=== PATIENT | male | born 1945 | race Caucasian/White ===

== ENCOUNTER 2017-09-20 10:33 | Inpatient (IN) ==
[2017-09-20] MEDS ORDERED: Ipratropium/Albuterol Neb 3 ML IH ONE (10:39)
[2017-09-20] MEDS ORDERED: methylPREDNISolone 125 MG/2 ML VIAL IVP ONE (10:39)
--- NOTE | 2017-09-20 10:41 | Emergency Department Note ---
Disposition Clinical Impression: Acute exacerbation of chronic obstructive airways disease Disposition: Admitted As Inpatient Condition: Good Forms: ED Satisfaction Letter SOB HPI - General Chief Complaint: ED Shortness of Breath/Dyspnea Stated Complaint: shortness of breath Time Seen by Provider: 09/20/17 10:38 Source: patient, EMS Mode of arrival: EMS Limitations: no limitations Nursing Notes Reviewed: Yes Vital Signs Reviewed: Yes - History of Present Illness Pt Subjective Complaint: shortness of breath Onset (ago): Just HOME HEALTH AID Context: other (States increasing cough with mild production. He denies any associated chest pain, dizziness, heart racing, active pain, or abdominal pain. The patient was seen by EMS this morning and was given one breathing treatment. The patient did give himself one albuterol treatment at home. He is chronically on home oxygen at 3 L.) Severity: severe Consistency/Duration: gradually worsening Improves with: oxygen, bronchodilators Worsens with: movement Known history of: COPD Associated symptoms: Reports: sputum production. Denies: chest pain, pain with inspiration, fever, lower extremity pain, diaphoresis, nausea/vomiting, abdominal pain, sense of impending doom Treatment prior to arrival: oxygen, bronchodilator Cough present: Yes Cough Description: Involuntary Cough Frequency: Intermittent Sputum production: Yes Sputum Amount: Small - Related Data Home Medications Medication Instructions Recorded Confirmed Aspirin 81 mg PO DAILY 03/02/15 08/20/17 Budesonide/Formoterol 160/4.5 2 puff IH BIDR 03/02/15 08/20/17 [Symbicort] Levothyroxine [Synthroid] 150 mcg PO DAILY 03/02/15 08/20/17 Phenytoin ER [Dilantin ER] 100 mg PO TID 03/02/15 08/20/17 Umeclidinium [place] [Incruse 1 puff IH DAILY 05/25/17 08/20/17 Ellipta] Albuterol Neb [Proventil Neb] 2.5 mg IH TID 08/20/17 08/20/17 Albuterol Sulfate [Ventolin Hfa] 2 puff IH Q6H PRN 08/20/17 08/20/17 Olmesartan Medoxomil [Benicar] 20 mg PO DAILY 08/20/17 08/20/17 Previous Rx's Medication Instructions Recorded Montelukast [Singulair] 10 mg PO DAILY #30 tablet 06/22/15 Lisinopril [Zestril] 10 mg PO DAILY #30 tablet 07/31/17 Metoprolol XL (24 HR) Succ [Toprol 25 mg PO DAILY #30 tab.er.24h 07/31/17 Xl] Allergies Allergy/AdvReac Type Severity Reaction Status Date / Time No Known Allergies Allergy Verified 09/20/17 10:34 All systems ED: reviewed and negative except as stated. Past Medical History - Past Medical History Medical history: Reports: asthma, cancer, COPD, hyperlipidemia, hypertension, seizures, thyroid disease, syncope, other Surgical history: Reports: colectomy Psychiatric history: Reports: no psych history - Social History Smoking Status: Former smoker Smokeless Tobacco Status: No Alcohol use: Reports: none Drug use: Reports: none Physical Exam - General Limitations: no limitations General appearance: alert, in distress - Head Head exam: atraumatic, normocephalic, normal inspection - Eye Eye exam: Present: normal appearance, PERRL, EOMI - ENT ENT exam: normal exam, normal oropharynx, mucous membranes dry - Neck Neck exam: Present: normal inspection, full ROM, trachea midline - Chest Chest inspection: Present: normal inspection, symmetric chest wall rise - Respiratory Respiratory exam: Present: respiratory distress, prolonged expiratory phase. Absent: wheezes, stridor, accessory muscle use - Expanded Respiratory Exam Location: decreased breath sounds: Lower, Upper - Cardiovascular Cardiovascular exam: Present: tachycardia, normal heart sounds. Absent: JVD - Abdominal Exam Abdominal exam: Present: soft, Non-Tender, other (Ventral hernia). Absent: tenderness, distention, guarding, rebound, rigidity - Extremities Exam Extremities exam: Present: normal inspection, full ROM. Absent: tenderness, pedal edema - Neurological Exam Neurological exam: Present: alert, oriented X3 - Skin Skin exam: Present: warm, dry, intact, normal color Course Course Narrative: Stable ED course with improvement of his respiratory failure after breathing treatment. He was placed on NRB secondary to persistent low oxygen saturation Vital Signs Temperature 99.8 F H 09/20/17 10:35 Pulse Rate 109 09/20/17 10:35 Respiratory Rate 24 09/20/17 10:35 Blood Pressure 146/104 09/20/17 10:35 O2 Sat by Pulse Oximetry 90 09/20/17 10:35 Temperature 99.8 F H 09/20/17 10:35 Pulse Rate 107 09/20/17 10:40 Respiratory Rate 14 09/20/17 10:53 Blood Pressure 146/104 09/20/17 10:40 O2 Sat by Pulse Oximetry 92 09/20/17 10:53 Oxygen Delivery Oxygen Delivery Nasal Cannula Shortness of Breath/Dyspnea - MDM Narrative Medical decision making narrative: Stable vitals. Respiratory status improved after treatment. Admit the patient for further treatment and pulmonary toileting. Discussed with admitting hospitalist. - Differential Diagnosis Likely: acute exacerbation of chronic obstructive airways disease - Lab Data Result diagrams: 09/20/17 10:53 09/20/17 10:53 Lab Results 09/20/17 09/20/17 09/20/17 Range/Units 10:53 10:53 10:53 WBC 6.9 (4.3-11.1) K/mcL RBC 4.12 L (4.19-5.50) M/mcL Hgb 13.1 (12.9-16.9) g/dL Hct 40.0 (37.5-50.1) % MCV 97.1 (83.0-100.0) fL MCH 31.8 (28.0-33.3) pg MCHC 32.8 (31.6-35.5) g/dL RDW 13.3 (11.5-14.5) % Plt Count 194 (140-400) K/mcL MPV 10.9 (9.4-12.4) fL Immature Gran % 0.1 (0-4) % Seg Neutrophils % 81.1 % Lymphocytes % 8.0 % Monocytes % 7.0 % Eosinophils % 3.2 % Basophils % 0.6 % Neutrophils # 5.6 (1.6-8.9) K/mcL Lymphocytes # 0.6 (0.6-4.6) K/mcL Monocytes # 0.5 (0.0-1.3) K/mcL Eosinophils # 0.2 (0.0-0.6) K/mcL Basophils # 0.0 (0.0-0.2) K/mcL Sodium 136 (136-145) mEq/L Potassium 4.8 (3.5-5.1) mEq/L Chloride 102 (98-107) mEq/L Carbon Dioxide 27 (23-29) mEq/L BUN 11 (8-23) mg/dL Creatinine 0.82 (0.70-1.30) mg/dL Est GFR ( Amer) > 60 (> 60) Est GFR (Non-Af Amer) > 60 (> 60) BUN/Creatinine Ratio 13 (6-26) Glucose 123 H (70-105) mg/dL Calculated Osmolality 283 (280-300) Calcium 8.8 (8.6-10.3) mg/dL Troponin I 0.03 (< 0.04) ng/mL B-Natriuretic Peptide 35 (Less than 100) pg/mL Critical Care Time Critical Care Time: Yes Total Critical Care Time: 60 Attestation: Critical care performed: Time is exclusive of separately billable procedures. Time includes: direct patient care, patient reassessment, coordination of patient care, interpretation of data (laboratory data, radiology data, and respiratory data), review of patient's medical records, medical consultation and documentation of patient care. Procedures included in critical care time: Procedures excluded from critical care time:
[2017-09-20 11:05] LABS: Basophils % 0.6 %; Eosinophils # 0.2 K/mcL (0.0-0.6); Eosinophils % 3.2 %; Hemoglobin 13.1 g/dL (12.9-16.9); Immature Granulocytes % 0.1 % (0-4); Lymphocytes # 0.6 K/mcL (0.6-4.6); Mean Corpuscular HGB Conc 32.8 g/dL (31.6-35.5); Mean Corpuscular Hemoglobin 31.8 pg (28.0-33.3); Mean Corpuscular Volume 97.1 fL (83.0-100.0); Mean Platelet Volume 10.9 fL (9.4-12.4); Monocytes # 0.5 K/mcL (0.0-1.3); Neutrophils # 5.6 K/mcL (1.6-8.9); Platelet Count 194 K/mcL (140-400); Red Blood Count 4.12 M/mcL (4.19-5.50); Red Cell Distribution Width 13.3 % (11.5-14.5); Segmented Neutrophils % 81.1 %
[2017-09-20 11:28] LABS: Troponin I 0.03 ng/mL (< 0.04)
[2017-09-20 11:30] LABS: BUN/Creatinine Ratio 13 (6-26); Blood Urea Nitrogen 11 mg/dL (8-23); Calcium 8.8 mg/dL (8.6-10.3); Carbon Dioxide 27 mEq/L (23-29); Chloride 102 mEq/L (98-107); Glucose 123 mg/dL (70-105); Osmolality,Calculated 283 (280-300); Potassium 4.8 mEq/L (3.5-5.1); Sodium 136 mEq/L (136-145); eGFR For African Americans > 60 (> 60); eGFR For Non-African Americans > 60 (> 60)
[2017-09-20] MEDS ORDERED: Acetaminophen 325 MG TABLET PO PRN (12:55)
[2017-09-20] MEDS ORDERED: Naloxone 0.4 MG/ML INJ IVP PRN (12:55)
[2017-09-20] MEDS ORDERED: *HR* HYDROcodone/Acet 5/325 mg TABLET PO PRN (12:55)
[2017-09-20 14:05] LABS: Phenytoin (Dilantin) 2.8 mcg/mL (10.0-20.0)
--- NOTE | 2017-09-20 15:37 | Internal Med History&Physical ---
Date of Encounter: 09/20/17 Time of Encounter: 15:15 Assessment and Plan (1) COPD exacerbation Current visit: No Status: Acute He has been given Solu-Medrol in emergency room. I will give him Rocephin and Zithromax since he has left shift on WBC differential. We will reassess in a.m. (2) Seizures Current visit: No Status: Chronic Continue Dilantin Internal Medicine - H&P: HPI Chief complaint: Dyspnea Admitted From: Emergency Dept Plans for Post Hospital Care: Home History of present illness: Mr. Vail is a 72 year old male who came to emergency room stating he had dyspnea and lightheadedness while ambulating to the bathroom. His dyspnea also was more severe than usual. He has had minimally productive cough. There has been no pain associated. He denies fevers chills vomiting or diarrhea. He was evaluated in emergency room and felt to have exacerbation of COPD and was admitted to [facility] floor for ongoing care needs. He was hospitalized July 2017 at [facility] with a diagnosis of exacerbation of COPD. His respiratory history is significant for having smoked from age [age] up to 2 packs per day. He wears oxygen 24/7. He reports orthostatic symptoms have been present on arising from a seated position for several weeks to months but the episode today was much more severe. Past Med Surg Social Fam HX - Past Medical History Medical history: asthma, cancer, COPD, hyperlipidemia, hypertension, seizures, thyroid disease, syncope, other Psychiatric history: no psych history - Past Surgical History Surgical History: colectomy - Social History Smoking Status: Former smoker Smokeless Tobacco Status: No Alcohol use: none Drug use: none - Family History Mother Hx Family Respiratory Disorders: Yes (TB) Father Hx Family Cancer: Yes Internal Medicine - H&P: Meds Aspirin 81 mg PO DAILY 03/02/15 [History] Budesonide/Formoterol 160/4.5 [Symbicort] 2 puff IH BIDR 03/02/15 [History] Levothyroxine [Synthroid] 150 mcg PO DAILY 03/02/15 [History] Phenytoin ER [Dilantin ER] 100 mg PO TID 03/02/15 [History] Montelukast [Singulair] 10 mg PO DAILY #30 tablet 06/22/15 [Rx] Umeclidinium [place] [Incruse Ellipta] 1 puff IH DAILY 05/25/17 [History] Lisinopril [Zestril] 10 mg PO DAILY #30 tablet 07/31/17 [Rx] Metoprolol XL (24 HR) Succ [Toprol Xl] 25 mg PO DAILY #30 tab.er.24h 07/31/17 [ Rx] Albuterol Sulfate [Ventolin Hfa] 2 puff IH Q6H PRN 08/20/17 [History] Olmesartan Medoxomil [Benicar] 20 mg PO DAILY 08/20/17 [History] 3 Allergy/AdvReac Type Severity Reaction Status Date / Time No Known Allergies Allergy Verified 09/20/17 10:34 All Systems PM: A 10-system review of systems was performed and is negative for pertinent findings except as documented above in the HPI. Review of systems: Review of systems from his July 2017 [facility] hospitalization were reviewed and revised as below. Gen.: His weight has increased from 91.99 kg on 07/12/2015 to 102.965 kg on admission now Cardiovascular: He has no known hypertension heart failure angina DVT pulmonary embolus or ND. He had a heart catheter January 2014 which showed 30% lesion in the mid LAD and normal LVEF at 65%. Respiratory: As per history of present illness GI: He had sigmoidectomy with primary anastomosis 2013 for colon cancer. He developed a ventral abdominal hernia postoperatively and is now using an elastic abdominal binder. He is presumed cancer free. He had repeat colonoscopy 05/25/2017 at [facility] which did not show significant pathology. He denies other disorders of his liver gallbladder or exocrine pancreas. : No history of hematuria dysuria or kidney stones. He has a liver lesion approximately 3.8 cm maximum diameter seen on CT scan that has been stable and felt to be benign. Neurologic: No history of large distribution strokes. He claims he had seizures from childhood but has not had recurrent episode for several years while using Dilantin. Endocrine: He has hypothyroidism and history of hyperlipidemia but no known diabetes Hematology/oncology: He had colon cancer as per above. He has had no other malignancies or anemia. Psychiatric: He had no anxiety depression or other mental health issues Musk skeletal: He has no known gout arthritis or osteoporosis. - Constitutional Vitals: Temp Pulse Resp BP Pulse Ox 99.8 F H 109 20 104/76 89 09/20/17 10:35 09/20/17 12:43 09/20/17 12:43 09/20/17 12:43 09/20/17 13:49 Exam: Gen.: He is a well-developed well-nourished male sitting on the side of bed who appears in minimal distress at present time HEENT: Head is atraumatic and normocephalic. Eyes: EOMI. There is no scleral icterus. Mouth: Mucosa is moist. Neck: Supple and nontender. There is no thyromegaly or adenopathy noted. Heart: Regular without murmurs gallops or ectopics Lungs: He has diminished breath sounds diffusely. No wheezes or crackles are heard. Abdomen: Soft and nontender. He is wearing abdominal elastic binder which I did not remove. Exam is limited because he is in the seated position. Extremities: There is no cyanosis edema or clubbing noted. He has chronic flexion at the left fourth finger DIP joint. He has surgically deformed left great toe. Neurologic: Mental status: He is very talkative and a good historian. Cranial nerves: Smile is symmetric. Forehead wrinkles bilaterally. Tongue protrudes midline. EOMI. Motor: There is no pronator drift. Cerebellar: Finger to nose is intact bilaterally. Skin: Warm and dry Internal Med - H&P Results - Labs CBC & Chem 7: 09/20/17 10:53 09/20/17 10:53
[2017-09-20] MEDS ORDERED: Azithromycin 250 MG in D5% in Water 250 ML IVPB SCH (16:00)
[2017-09-20] MEDS: Albuterol 2.5 MG/3 ML NEBULIZER IH PRN ×2 (16:08→21:06)
[2017-09-20] MEDS: predniSONE 10 MG TABLET PO SCH (16:12)
[2017-09-20] MEDS: cefTRIAXone 1,000 MG in Water for inj. (sterile) 20 ML 10 ML IVPB SCH (16:12)
--- NOTE | 2017-09-20 18:12 | Electrocardiograph Report ---
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
[2017-09-20] MEDS: Lactobacillus 1 EACH CAP.SPRINK PO SCH (20:09)
[2017-09-20] MEDS: Budesonide/Formoterol 160/4.5 MDI IH SCH (21:06)
[2017-09-21 05:57] LABS: Basophils % 0.4 %; Eosinophils # 0.1 K/mcL (0.0-0.6); Eosinophils % 1.5 %; Hematocrit 39.8 % (37.5-50.1); Hemoglobin 13.1 g/dL (12.9-16.9); Immature Granulocytes % 0.2 % (0-4); Lymphocytes # 0.5 K/mcL (0.6-4.6); Lymphocytes % 10.1 %; Mean Corpuscular HGB Conc 32.9 g/dL (31.6-35.5); Mean Corpuscular Hemoglobin 31.9 pg (28.0-33.3); Mean Corpuscular Volume 96.8 fL (83.0-100.0); Mean Platelet Volume 10.8 fL (9.4-12.4); Monocytes # 0.8 K/mcL (0.0-1.3); Monocytes % 17.2 %; Neutrophils # 3.3 K/mcL (1.6-8.9); Platelet Count 189 K/mcL (140-400); Red Blood Count 4.11 M/mcL (4.19-5.50); Red Cell Distribution Width 13.2 % (11.5-14.5); Segmented Neutrophils % 70.6 %
[2017-09-21] MEDS: predniSONE 10 MG TABLET PO SCH ×2 (08:51→16:53)
[2017-09-21] MEDS: Lactobacillus 1 EACH CAP.SPRINK PO SCH ×2 (08:51→19:52)
[2017-09-21] MEDS: Aspirin 81 MG TAB.CHEW PO SCH (08:51)
[2017-09-21] MEDS ORDERED: Metoprolol XL (24 HR) Succ 25 MG TAB.ER.24H PO SCH (09:00)
[2017-09-21] MEDS: Albuterol 2.5 MG/3 ML NEBULIZER IH PRN ×3 (11:07→21:10)
--- NOTE | 2017-09-21 11:08 | Internal Med Progress Note ---
Date of Encounter: 09/21/17 Time of Encounter: 11:00 - Assessment and plan (1) COPD exacerbation Current Visit: No Status: Acute Assessment and plan: September 21. Continue antibiotics, lactobacillus, and pulmonary interventions. Anticipate discharge home tomorrow. (2) Seizures Current Visit: No Status: Chronic Assessment and plan: September 21. Continue Dilantin. - Subjective Interval history: September 21. He has no new complaints and feels better - Constitutional Vitals: Temp Pulse Resp BP Pulse Ox 99.0 F 88 18 126/76 96 09/21/17 06:49 09/21/17 06:49 09/21/17 06:49 09/21/17 06:49 09/21/17 06:49 Exam: He is resting comfortably in bed and appears in no acute distress. His lungs are clear. Saturation is 93-95% on 15 L Venturi mask. Heart rate approximately 80/m. I reviewed his medications and lab results. Internal Medicine: Result - Labs CBC & Chem 7: 09/21/17 05:51 09/20/17 10:53 Labs: Short CBC 09/21/17 Range/Units 05:51 WBC 4.7 (4.3-11.1) K/mcL Hgb 13.1 (12.9-16.9) g/dL Hct 39.8 (37.5-50.1) % Plt Count 189 (140-400) K/mcL Neutrophils # 3.3 (1.6-8.9) K/mcL Consult Discharge Plan - Plan Referrals: Dex Hutton DO [Primary Care Provider] - 1 week
[2017-09-21] MEDS: Budesonide/Formoterol 160/4.5 MDI IH SCH ×2 (11:09→21:10)
[2017-09-21] MEDS ORDERED: Azithromycin 250 MG in D5% in Water 250 ML IVPB SCH (16:00)
[2017-09-21] MEDS: cefTRIAXone 1,000 MG in Water for inj. (sterile) 20 ML 10 ML IVPB SCH (16:53)
[2017-09-22 06:27] VITALS: BP 105/69
--- NOTE | 2017-09-22 08:28 | Discharge Summary ---
Date of Encounter: 09/22/17 Time of Encounter: 08:18 - Discharge Diagnosis (1) COPD exacerbation Priority: Primary Status: Acute (2) Seizures Priority: Secondary Status: Chronic Hospital course: Mr. Vail is a 72 year old male who came to emergency room stating he had dyspnea and lightheadedness while ambulating to the bathroom. His dyspnea also was more severe than usual. He has had minimally productive cough. There has been no pain associated. He denies fevers chills vomiting or diarrhea. He was evaluated in emergency room and felt to have exacerbation of COPD and was admitted to [facility] for ongoing care needs. Initial orders were written by the emergency room physician. I saw him on September 20 and performed a history and physical. He was started on Rocephin and Zithromax with probiotics and steroids. He had gradually improvement in his dyspnea and felt back to his baseline by August 26 and stable for discharge home. He will continue with antibiotic and probiotic for 2 additional days after discharge. Orthostatic vital signs showed decrease in blood pressure from 105/69 lying to 87/66 standing. He will discontinue lisinopril and Benicar but continue Toprol at discharge. His PCP can follow up on this. He will follow with Dr. Hutton within 1 week. - Time Spent with Patient Total time spent providing and/or coordinating discharge services: - Discharge Medications Prescriptions: Cefuroxime PO [Ceftin] 500 mg PO Q12HR #4 tablet Azithromycin [Zithromax] 250 mg PO DAILY #2 tablet Lactobacillus [Culturelle] 1 each PO BID #4 cap.sprink predniSONE [PredniSONE] 10 mg PO BIDWM #4 tablet Home Medications: Aspirin 81 mg PO DAILY 03/02/15 [History] Budesonide/Formoterol 160/4.5 [Symbicort] 2 puff IH BIDR 03/02/15 [History] Levothyroxine [Synthroid] 150 mcg PO DAILY 03/02/15 [History] Phenytoin ER [Dilantin ER] 100 mg PO TID 03/02/15 [History] Montelukast [Singulair] 10 mg PO DAILY #30 tablet 06/22/15 [Rx] Umeclidinium [place] [Incruse Ellipta] 1 puff IH DAILY 05/25/17 [History] Metoprolol XL (24 HR) Succ [Toprol Xl] 25 mg PO DAILY #30 tab.er.24h 07/31/17 [ Rx] Albuterol Sulfate [Ventolin Hfa] 2 puff IH Q6H PRN 08/20/17 [History] Azithromycin [Zithromax] 250 mg PO DAILY #2 tablet 09/22/17 [Rx] Cefuroxime PO [Ceftin] 500 mg PO Q12HR #4 tablet 09/22/17 [Rx] Lactobacillus [Culturelle] 1 each PO BID #4 cap.sprink 09/22/17 [Rx] predniSONE [PredniSONE] 10 mg PO BIDWM #4 tablet 09/22/17 [Rx] Allergies/Adverse Reactions: 3 Allergy/AdvReac Type Severity Reaction Status Date / Time No Known Allergies Allergy Verified 09/20/17 10:34 Date of admission: 09/21/17 21:40 Primary care physician: Dex Hutton DO - Constitutional Vitals: Temp Pulse Resp BP Pulse Ox 97.6 F 68 20 105/69 95 09/22/17 06:24 09/22/17 06:27 09/22/17 06:24 09/22/17 06:27 09/22/17 06:24 - Patient Status Disposition: Home, Self-Care Condition: Good - Discharge Instructions Follow Up With: Dex Hutton DO [Primary Care Provider] - 1 week - Diet and Activity Activity: resume usual activities as tolerated, wear oxygen at all times Diet: advance to your usual diet
--- NOTE | 2017-09-22 08:33 | Physician Discharge Referral ---
Home Health/Hosp Referral Info Transfer to: Home Health Attending Provider: Jackson Provider in Charge Post Discharge: PCP (Anni) - Diagnosis (1) COPD exacerbation Priority: Primary Status: Acute (2) Seizures Priority: Secondary Status: Chronic - Respiratory Orders Oxygen / L per min (3-5 L/m nasal cannula 16/01 to keep sat greater than 90%) Smoking Cessation: Smoking cessation has been advised. For more information, call the [place] Tobacco Quit Line at 1-303-PYQQ-NOW. - Diet/Nutrition Diet/Nutrition Orders: Regular - Activity Activity Orders: Ambulate - Services Needed Following services are medically necessary services: Nursing, Home Health Aide, Physical Therapy, Occupational Therapy - Transfer Medications Prescriptions: Cefuroxime PO [Ceftin] 500 mg PO Q12HR #4 tablet Azithromycin [Zithromax] 250 mg PO DAILY #2 tablet Lactobacillus [Culturelle] 1 each PO BID #4 cap.sprink predniSONE [PredniSONE] 10 mg PO BIDWM #4 tablet Home Medications: Aspirin 81 mg PO DAILY 03/02/15 [History] Budesonide/Formoterol 160/4.5 [Symbicort] 2 puff IH BIDR 03/02/15 [History] Levothyroxine [Synthroid] 150 mcg PO DAILY 03/02/15 [History] Phenytoin ER [Dilantin ER] 100 mg PO TID 03/02/15 [History] Montelukast [Singulair] 10 mg PO DAILY #30 tablet 06/22/15 [Rx] Umeclidinium [place] [Incruse Ellipta] 1 puff IH DAILY 05/25/17 [History] Metoprolol XL (24 HR) Succ [Toprol Xl] 25 mg PO DAILY #30 tab.er.24h 07/31/17 [ Rx] Albuterol Sulfate [Ventolin Hfa] 2 puff IH Q6H PRN 08/20/17 [History] Azithromycin [Zithromax] 250 mg PO DAILY #2 tablet 09/22/17 [Rx] Cefuroxime PO [Ceftin] 500 mg PO Q12HR #4 tablet 09/22/17 [Rx] Lactobacillus [Culturelle] 1 each PO BID #4 cap.sprink 09/22/17 [Rx] predniSONE [PredniSONE] 10 mg PO BIDWM #4 tablet 09/22/17 [Rx] Allergies/Adverse Reactions: 3 Allergy/AdvReac Type Severity Reaction Status Date / Time No Known Allergies Allergy Verified 09/20/17 10:34 Certification: Further, I certify that my clinical findings support that this patient is homebound (i.e. absences from home require considerable and taxing effort and are for medical reasons or yarsani services or infrequently or short duration when for other reasons) because: Homebound Reason: Leaving home requires considerable and taxing effort due to condition (Severe COPD) Attestation: My signature below is to certify that this patient is under my care and that I, or nurse practitioner, or a physician's executive assistant to president working with me, has a face-to -face encounter with this patient.
[2017-09-22] MEDS: Budesonide/Formoterol 160/4.5 MDI IH SCH (09:58)
[2017-09-22] MEDS: Albuterol 2.5 MG/3 ML NEBULIZER IH PRN (10:01)
[2017-09-22] MEDS: predniSONE 10 MG TABLET PO SCH (11:46)
[2017-09-22] MEDS: Lactobacillus 1 EACH CAP.SPRINK PO SCH (11:47)
[2017-09-22] MEDS: Aspirin 81 MG TAB.CHEW PO SCH (11:47)
== END 2017-09-22 12:20 | disposition home health service (06) | DRG 192 ==
LOC: EMEROOPIK 10:33 → INPPIK 10:33
PROVIDERS: ADMIT Internal Medicine; ATTEND Internal Medicine

== ENCOUNTER 2017-09-25 06:23 | Observation (INO) ==
--- NOTE | 2017-09-25 06:48 | Emergency Department Note ---
Disposition Clinical Impression: Pneumonia, Hypoxemia Disposition: Admitted As Inpatient Condition: Good Referrals: Dex Hutton DO [Primary Care Provider] - Forms: ED Satisfaction Letter SOB HPI - General Chief Complaint: ED Shortness of Breath/Dyspnea Stated Complaint: Shortness of breath Time Seen by Provider: 09/25/17 06:30 Source: patient Mode of arrival: EMS Limitations: no limitations Nursing Notes Reviewed: Yes Vital Signs Reviewed: Yes - History of Present Illness Patient states that shortness of breath his blood pressure was high started about 5:00 this morning he called the squad and was transported here. He says "this always happens". He denies any chest pain fevers chills nausea vomiting rashes or other complaints. 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 Denies: fever Treatment prior to arrival: none - Related Data Home Medications Medication Instructions Recorded Confirmed Aspirin 81 mg PO DAILY 03/02/15 09/20/17 Budesonide/Formoterol 160/4.5 2 puff IH BIDR 03/02/15 09/20/17 [Symbicort] Levothyroxine [Synthroid] 150 mcg PO DAILY 03/02/15 09/20/17 Phenytoin ER [Dilantin ER] 100 mg PO TID 03/02/15 09/20/17 Umeclidinium [place] [Incruse 1 puff IH DAILY 05/25/17 09/20/17 Ellipta] Albuterol Sulfate [Ventolin Hfa] 2 puff IH Q6H PRN 08/20/17 09/20/17 Previous Rx's Medication Instructions Recorded Montelukast [Singulair] 10 mg PO DAILY #30 tablet 06/22/15 Metoprolol XL (24 HR) Succ [Toprol 25 mg PO DAILY #30 tab.er.24h 07/31/17 Xl] Azithromycin [Zithromax] 250 mg PO DAILY #2 tablet 09/22/17 Cefuroxime PO [Ceftin] 500 mg PO Q12HR #4 tablet 09/22/17 Lactobacillus [Culturelle] 1 each PO BID #4 cap.sprink 09/22/17 predniSONE [PredniSONE] 10 mg PO BIDWM #4 tablet 09/22/17 Allergies Allergy/AdvReac Type Severity Reaction Status Date / Time No Known Allergies Allergy Verified 09/20/17 10:34 All systems ED: reviewed and negative except as stated. Review of Systems: As Per HPI Constitutional: Denies: fever, chills, weakness, weight change Eyes: Denies: eye pain, eye discharge, vision change ENT ED: Denies: ear pain, throat pain, dental pain, hearing loss, epistaxis, congestion, dysphagia Cardiovascular: Denies: chest pain, palpitations, dyspnea on exertion, edema, syncope Respiratory: Reports: as per HPI, cough, other (SOB). Denies: sputum production Gastrointestinal: Denies: abdominal pain, nausea, vomiting, diarrhea, constipation, hematemesis, melena, hematochezia Genitourinary: Denies: urgency, dysuria, frequency, hematuria Musculoskeletal: Denies: back pain, neck pain, arthralgia, myalgia Integumentary: Denies: rash, abrasion, lesions Neurological: Denies: headache, weakness, numbness, paresthesias, confusion, abnormal gait, vertigo Psychiatric: Denies: anxiety, depression, suicidal thoughts, homicidal thoughts , auditory hallucinations, visual hallucinations Endocrine: Denies: fatigue Hematological/Lymphatic: Denies: easy bleeding, easy bruising Allergic/Immunologic: Denies: facial swelling, urticaria Past Medical History - Past Medical History Attestation: Yes The following information was validated with the patient. Source: patient Medical history: Reports: asthma, cancer, COPD, hyperlipidemia, hypertension, seizures, thyroid disease, syncope, other Surgical history: Reports: colectomy Psychiatric history: Reports: no psych history - Social History Smoking Status: Former smoker Smokeless Tobacco Status: No Alcohol use: Reports: none Drug use: Reports: none Physical Exam - General Limitations: no limitations General appearance: alert, in no apparent distress - Head Head exam: atraumatic, normocephalic, normal inspection - Eye Eye exam: Present: normal appearance - ENT ENT exam: normal exam, normal oropharynx, mucous membranes moist - Neck Neck exam: Present: normal inspection, full ROM, trachea midline - Chest Chest inspection: Present: normal inspection, symmetric chest wall rise - Respiratory Respiratory exam: Present: normal lung sounds bilaterally, other (generally diminished) - Cardiovascular Cardiovascular exam: Present: regular rate, normal rhythm, normal heart sounds - Abdominal Exam Abdominal exam: Present: soft, Non-Tender, normal bowel sounds - Extremities Exam Extremities exam: Present: normal inspection - Back Exam Back exam: Present: normal inspection - Neurological Exam Neurological exam: Present: alert, oriented X3 - Psychiatric Psychiatric exam: Present: normal affect, normal mood - Skin Skin exam: Present: warm, dry, intact Course Vital Signs Temperature 98.0 F 09/25/17 06:26 Pulse Rate 89 09/25/17 06:26 Respiratory Rate 25 09/25/17 06:26 Blood Pressure 145/100 09/25/17 06:26 O2 Sat by Pulse Oximetry 87 09/25/17 06:26 Temperature 98.0 F 09/25/17 06:26 Pulse Rate 89 09/25/17 06:26 Respiratory Rate 18 09/25/17 07:32 Blood Pressure 145/100 09/25/17 06:26 O2 Sat by Pulse Oximetry 91 09/25/17 07:32 Oxygen Delivery Oxygen Delivery Nasal Cannula Shortness of Breath/Dyspnea - MDM Narrative Medical decision making narrative: Discussed with Dr. Paz who accepts the admission - Lab Data Lab results reviewed: Yes I reviewed the patient's lab results. Result diagrams: 09/25/17 07:10 09/25/17 07:10 Lab Results 09/25/17 09/25/17 Range/Units 07:10 07:10 WBC 3.9 L (4.3-11.1) K/mcL RBC 4.33 (4.19-5.50) M/mcL Hgb 13.9 (12.9-16.9) g/dL Hct 40.9 (37.5-50.1) % MCV 94.5 (83.0-100.0) fL MCH 32.1 (28.0-33.3) pg MCHC 34.0 (31.6-35.5) g/dL RDW 13.1 (11.5-14.5) % Plt Count 203 (140-400) K/mcL MPV 10.8 (9.4-12.4) fL Immature Gran % 0.3 (0-4) % Seg Neutrophils % 62.0 % Lymphocytes % 24.0 % Monocytes % 11.9 % Eosinophils % 1.0 % Basophils % 0.8 % Neutrophils # 2.4 (1.6-8.9) K/mcL Lymphocytes # 0.9 (0.6-4.6) K/mcL Monocytes # 0.5 (0.0-1.3) K/mcL Eosinophils # 0.0 (0.0-0.6) K/mcL Basophils # 0.0 (0.0-0.2) K/mcL Sodium 136 (136-145) mEq/L Potassium 3.8 (3.5-5.1) mEq/L Chloride 103 (98-107) mEq/L Carbon Dioxide 25 (23-29) mEq/L BUN 15 (8-23) mg/dL Creatinine 0.84 (0.70-1.30) mg/dL Est GFR ( Amer) > 60 (> 60) Est GFR (Non-Af Amer) > 60 (> 60) BUN/Creatinine Ratio 18 (6-26) Glucose 93 (70-105) mg/dL Calculated Osmolality 283 (280-300) Calcium 8.9 (8.6-10.3) mg/dL Total Bilirubin 0.5 (0.3-1.0) mg/dL AST 26 (13-39) Units/L ALT 34 (7-52) Units/L Alkaline Phosphatase 121 H (34-104) Units/L Troponin I 0.03 (< 0.04) ng/mL Serum Total Protein 7.1 (6.4-8.9) g/dL Albumin 4.3 (3.5-5.7) g/dL Globulin 2.8 (2.4-3.5) g/dL Albumin/Globulin Ratio 1.5 (1.1-2.2) - Radiology Data Radiology results reviewed: Yes I reviewed the patient's radiology results. - EKG Data EKG attestation: Yes I reviewed and interpreted this EKG. EKG results narrative: EKG sinus shows sinus rhythm with first-degree AV block left axis deviation. Rate is 86 bpm. Full 247 ms QRS duration 89 ms QT interval 356 QTC 400 ms respectively R axis of -33 degrees
[2017-09-25] MEDS ORDERED: methylPREDNISolone 125 MG/2 ML VIAL IVP ONE (06:49)
[2017-09-25] MEDS ORDERED: Ipratropium/Albuterol Neb 3 ML IH ONE (06:49)
[2017-09-25] MEDS ORDERED: 0.9 % Sodium Chloride 1,000 ML IVC SCH ×2 (07:00→12:38)
[2017-09-25 07:25] LABS: Basophils % 0.8 %; Hematocrit 40.9 % (37.5-50.1); Hemoglobin 13.9 g/dL (12.9-16.9); Immature Granulocytes % 0.3 % (0-4); Lymphocytes # 0.9 K/mcL (0.6-4.6); Mean Corpuscular Hemoglobin 32.1 pg (28.0-33.3); Mean Corpuscular Volume 94.5 fL (83.0-100.0); Mean Platelet Volume 10.8 fL (9.4-12.4); Monocytes # 0.5 K/mcL (0.0-1.3); Monocytes % 11.9 %; Neutrophils # 2.4 K/mcL (1.6-8.9); Platelet Count 203 K/mcL (140-400); Red Blood Count 4.33 M/mcL (4.19-5.50); Red Cell Distribution Width 13.1 % (11.5-14.5)
[2017-09-25 07:41] LABS: Alanine Aminotransferase 34 Units/L (7-52); Albumin 4.3 g/dL (3.5-5.7); Albumin/Globulin Ratio 1.5 (1.1-2.2); Alkaline Phosphatase 121 Units/L (34-104); Aspartate Amino Transferase 26 Units/L (13-39); BUN/Creatinine Ratio 18 (6-26); Bilirubin,Total 0.5 mg/dL (0.3-1.0); Blood Urea Nitrogen 15 mg/dL (8-23); Calcium 8.9 mg/dL (8.6-10.3); Carbon Dioxide 25 mEq/L (23-29); Chloride 103 mEq/L (98-107); Globulin 2.8 g/dL (2.4-3.5); Glucose 93 mg/dL (70-105); Osmolality,Calculated 283 (280-300); Potassium 3.8 mEq/L (3.5-5.1); Sodium 136 mEq/L (136-145); Total Protein 7.1 g/dL (6.4-8.9); eGFR For African Americans > 60 (> 60); eGFR For Non-African Americans > 60 (> 60)
[2017-09-25 07:44] LABS: Troponin I 0.03 ng/mL (< 0.04)
[2017-09-25] MEDS ORDERED: UMECLIDINIUM BROMIDE IH SCH (12:38)
[2017-09-25] MEDS ORDERED: Naloxone 0.4 MG/ML INJ IVP PRN (12:38)
--- NOTE | 2017-09-25 12:47 | Electrocardiograph Report ---
[address] [address] Test Date: 2017-09-25 Pat Name: Nirmal Vail Department: [id number] Room: 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
[2017-09-25] MEDS: Budesonide/Formoterol 160/4.5 MDI IH SCH ×2 (13:04→22:24)
[2017-09-25] MEDS: Aspirin 81 MG TAB.CHEW PO SCH (14:33)
[2017-09-25] MEDS: Metoprolol XL (24 HR) Succ 25 MG TAB.ER.24H PO SCH (14:34)
[2017-09-25] MEDS: predniSONE 10 MG TABLET PO SCH ×2 (14:34→14:36)
--- NOTE | 2017-09-25 15:23 | Internal Med History&Physical ---
Date of Encounter: 09/25/17 Time of Encounter: 15:00 Assessment and Plan (1) Hypoxemia Current visit: Yes Status: Acute Suspect due to severe underlying COPD with possible superimposed pneumonia. Will order chest CT to further evaluate. Internal Medicine - H&P: HPI Chief complaint: Dyspnea Admitted From: Emergency Dept Plans for Post Hospital Care: Home History of present illness: Mr. Vail is a 72 year old male who came to emergency room stating he awakened approximately 5 AM today with dyspnea. He noted his oxygen concentrator did not appear to be working properly. He is unsure how long the machine may have been malfunctioning. He came to emergency room because of dyspnea and was evaluated and felt to have exacerbation of COPD. He was admitted to [facility] floor for ongoing care needs. He was discharged from [facility] September 22 following a September 20 admission for dyspnea. He was treated with antibiotics during hospital stay and given Ceftin and Zithromax at discharge for 2 additional days. His respiratory history is significant for having smoked from age [age] up to 2 packs per day. He wears oxygen 16/01. Past Med Surg Social Fam HX - Past Medical History Medical history: asthma, cancer, COPD, hyperlipidemia, hypertension, seizures, thyroid disease, syncope, other Psychiatric history: no psych history - Past Surgical History Surgical History: colectomy - Social History Smoking Status: Former smoker Smokeless Tobacco Status: No Alcohol use: none Drug use: none - Family History Mother Hx Family Respiratory Disorders: Yes (TB) Father Hx Family Cancer: Yes Internal Medicine - H&P: Meds Aspirin 81 mg PO DAILY 03/02/15 [History] Budesonide/Formoterol 160/4.5 [Symbicort] 2 puff IH BIDR 03/02/15 [History] Levothyroxine [Synthroid] 150 mcg PO DAILY 03/02/15 [History] Phenytoin ER [Dilantin ER] 100 mg PO TID 03/02/15 [History] Montelukast [Singulair] 10 mg PO DAILY #30 tablet 06/22/15 [Rx] Umeclidinium [place] [Incruse Ellipta] 1 puff IH DAILY 05/25/17 [History] Metoprolol XL (24 HR) Succ [Toprol Xl] 25 mg PO DAILY #30 tab.er.24h 07/31/17 [ Rx] Albuterol Sulfate [Ventolin Hfa] 2 puff IH Q6H PRN 08/20/17 [History] Azithromycin [Zithromax] 250 mg PO DAILY #2 tablet 09/22/17 [Rx] Cefuroxime PO [Ceftin] 500 mg PO Q12HR #4 tablet 09/22/17 [Rx] Lactobacillus [Culturelle] 1 each PO BID #4 cap.sprink 09/22/17 [Rx] predniSONE [PredniSONE] 10 mg PO BIDWM #4 tablet 09/22/17 [Rx] 3 Allergy/AdvReac Type Severity Reaction Status Date / Time No Known Allergies Allergy Verified 09/20/17 10:34 All Systems PM: A 10-system review of systems was performed and is negative for pertinent findings except as documented above in the HPI. Review of systems: Review of systems from his August 2017 [facility] hospitalization last week were reviewed and revised as below. Gen.: His weight has increased from 91.99 kg on 07/12/2015 to 92.986 kg now Cardiovascular: He has no known hypertension heart failure angina DVT pulmonary embolus or [place]. He had a heart catheter January 2014 which showed 30% lesion in the mid LAD and normal LVEF at 65%. Respiratory: As per history of present illness GI: He had sigmoidectomy with primary anastomosis 07/2013 for colon cancer. He developed a ventral abdominal hernia postoperatively and is now using an elastic abdominal binder. He is presumed cancer free. He had repeat colonoscopy 05/25/2017 at [facility] which did not show significant pathology. He denies other disorders of his liver gallbladder or exocrine pancreas. : No history of hematuria dysuria or kidney stones. He has a liver lesion approximately 3.8 cm maximum diameter seen on CT scan that has been stable and felt to be benign. Neurologic: No history of large distribution strokes. He claims he had seizures from childhood but has not had recurrent episode for several years while using Dilantin. Endocrine: He has hypothyroidism and history of hyperlipidemia but no known diabetes Hematology/oncology: He had colon cancer as per above. He has had no other malignancies or anemia. Psychiatric: He had no anxiety depression or other mental health issues Musk skeletal: He has no known gout arthritis or osteoporosis. - Constitutional Vitals: Temp Pulse Resp BP Pulse Ox 99 F 99 19 166/87 90 09/25/17 13:13 09/25/17 13:13 04/02/18 13:13 09/25/17 13:13 09/25/17 13:13 Exam: Gen.: He is a well-developed well-nourished male lying in bed who appears in no acute distress at present time HEENT: Head is atraumatic and normocephalic. Eyes: EOMI. There is no scleral icterus. Mouth: Mucosa is moist. Neck: Supple and nontender. There is no thyromegaly or adenopathy noted. Heart: Regular without murmurs gallops or ectopics Lungs: No wheezes or crackles are heard. He has diminished breath sounds diffusely. Abdomen: He has a large ventral hernia and is wearing an abdominal binder which I did not remove. The abdomen is nontender to palpation. Extremities: There is no cyanosis edema or clubbing noted. Dorsalis pedis and posttibial pulses are trace to 1+ palpable bilaterally. Neurologic: Mental status: He is very talkative and able to answer most questions appropriately. Cranial nerves: Smile is symmetric. Forehead wrinkles bilaterally. Tongue protrudes midline. EOMI. Motor: There is no pronator drift. Cerebellar: Finger to nose is intact bilaterally. Skin: Warm and dry Internal Med - H&P Results - Labs CBC & Chem 7: 09/25/17 07:10 09/25/17 07:10
[2017-09-25] MEDS ORDERED: Albuterol 2.5 MG/3 ML NEBULIZER IH PRN (16:51)
[2017-09-26 08:04] VITALS: BP 126/83
[2017-09-26] MEDS: predniSONE 10 MG TABLET PO SCH (08:31)
[2017-09-26] MEDS: Metoprolol XL (24 HR) Succ 25 MG TAB.ER.24H PO SCH (08:31)
[2017-09-26] MEDS: Aspirin 81 MG TAB.CHEW PO SCH (08:31)
[2017-09-26] MEDS: Budesonide/Formoterol 160/4.5 MDI IH SCH (10:44)
--- NOTE | 2017-09-26 11:21 | Discharge Summary ---
Date of Encounter: 09/26/17 Time of Encounter: 11:10 - Discharge Diagnosis (1) Hypoxemia Priority: Primary Status: Acute Hospital course: Mr. Vail is a 72 year old male who came to emergency room stating he awakened approximately 5 AM today with dyspnea. He noted his oxygen concentrator did not appear to be working properly. He is unsure how long the machine may have been malfunctioning. He came to emergency room because of dyspnea and was evaluated and felt to have exacerbation of COPD. He was admitted to [facility] for ongoing care needs. Initial orders were written by the emergency room physician. I saw him on September 25 and performed a history and physical. Chest CT was done to further evaluate hypoxemia and follow-up on possible pneumonia seen on chest x-ray. The CT showed emphysema but no evidence of consolidation or nodules. His saturations remained 87-91% on oxygen by nasal cannula. I suspect this is his baseline. On September 26 I felt he was stable for discharge home. He will follow with his PCP Dr. Hutton within 1 week. - Time Spent with Patient Total time spent providing and/or coordinating discharge services: - Discharge Medications Home Medications: Aspirin 81 mg PO DAILY 03/02/15 [History] Budesonide/Formoterol 160/4.5 [Symbicort] 2 puff IH BIDR 03/02/15 [History] Levothyroxine [Synthroid] 150 mcg PO DAILY 03/02/15 [History] Phenytoin ER [Dilantin ER] 100 mg PO TID 03/02/15 [History] Montelukast [Singulair] 10 mg PO DAILY #30 tablet 06/22/15 [Rx] Umeclidinium [place] [Incruse Ellipta] 1 puff IH DAILY 05/25/17 [History] Metoprolol XL (24 HR) Succ [Toprol Xl] 25 mg PO DAILY #30 tab.er.24h 07/31/17 [ Rx] Albuterol Sulfate [Ventolin Hfa] 2 puff IH Q6H PRN 08/20/17 [History] Azithromycin [Zithromax] 250 mg PO DAILY #2 tablet 09/22/17 [Rx] Cefuroxime PO [Ceftin] 500 mg PO Q12HR #4 tablet 09/22/17 [Rx] Lactobacillus [Culturelle] 1 each PO BID #4 cap.sprink 09/22/17 [Rx] predniSONE [PredniSONE] 10 mg PO BIDWM #4 tablet 09/22/17 [Rx] Allergies/Adverse Reactions: 3 Allergy/AdvReac Type Severity Reaction Status Date / Time No Known Allergies Allergy Verified 09/20/17 10:34 Date of admission: 09/25/17 12:25 Primary care physician: Dex Hutton DO - Constitutional Vitals: Temp Pulse Resp BP Pulse Ox 98.4 F 92 86 126/83 92 09/26/17 10:37 09/26/17 10:37 09/26/17 10:37 09/26/17 06:45 09/26/17 10:37 - Patient Status Disposition: Home Health Service Condition: Good Overall status at discharge: patient is progressing back to baseline - Discharge Instructions Follow Up With: Dex Hutton DO [Primary Care Provider] - 1 week - Diet and Activity Activity: resume usual activities as tolerated, wear oxygen at all times Diet: advance to your usual diet
--- NOTE | 2017-09-26 11:25 | Physician Discharge Referral ---
Home Health/Hosp Referral Info Transfer to: Home Health Attending Provider: Jackson Provider in Charge Post Discharge: PCP (Anni) - Diagnosis (1) Hypoxemia Priority: Primary Status: Acute - Respiratory Orders Oxygen / L per min (2 L/m by nasal cannula 16/01) Smoking Cessation: Smoking cessation has been advised. For more information, call the [place] Tobacco Quit Line at 8-261-YTHU-NOW. - Diet/Nutrition Diet/Nutrition Orders: Regular - Activity Activity Orders: Walker - Services Needed Following services are medically necessary services: Nursing, Home Health Aide, Physical Therapy, Occupational Therapy - Transfer Medications Home Medications: Aspirin 81 mg PO DAILY 03/02/15 [History] Budesonide/Formoterol 160/4.5 [Symbicort] 2 puff IH BIDR 03/02/15 [History] Levothyroxine [Synthroid] 150 mcg PO DAILY 03/02/15 [History] Phenytoin ER [Dilantin ER] 100 mg PO TID 03/02/15 [History] Montelukast [Singulair] 10 mg PO DAILY #30 tablet 06/22/15 [Rx] Umeclidinium [place] [Incruse Ellipta] 1 puff IH DAILY 05/25/17 [History] Metoprolol XL (24 HR) Succ [Toprol Xl] 25 mg PO DAILY #30 tab.er.24h 07/31/17 [ Rx] Albuterol Sulfate [Ventolin Hfa] 2 puff IH Q6H PRN 08/20/17 [History] Azithromycin [Zithromax] 250 mg PO DAILY #2 tablet 09/22/17 [Rx] Cefuroxime PO [Ceftin] 500 mg PO Q12HR #4 tablet 09/22/17 [Rx] Lactobacillus [Culturelle] 1 each PO BID #4 cap.sprink 09/22/17 [Rx] predniSONE [PredniSONE] 10 mg PO BIDWM #4 tablet 09/22/17 [Rx] Allergies/Adverse Reactions: 3 Allergy/AdvReac Type Severity Reaction Status Date / Time No Known Allergies Allergy Verified 09/20/17 10:34 Certification: Further, I certify that my clinical findings support that this patient is homebound (i.e. absences from home require considerable and taxing effort and are for medical reasons or yazidism services or infrequently or short duration when for other reasons) because: Homebound Reason: Leaving home requires considerable and taxing effort due to condition (Severe COPD with hypoxemia) Attestation: My signature below is to certify that this patient is under my care and that I, or nurse practitioner, or a physician's assistant golf professional working with me, has a face-to -face encounter with this patient.
== END 2017-09-26 12:13 | disposition home health service (06) ==
LOC: INPPIK 06:23 → EMEROOPIK 06:23 → INPPIK 12:50
PROVIDERS: ADMIT Internal Medicine; ATTEND Internal Medicine

== ENCOUNTER 2017-11-07 05:53 | Observation (INO) ==
--- NOTE | 2017-11-07 06:08 | Emergency Department Note ---
Disposition Clinical Impression: Acute exacerbation of chronic obstructive airways disease Disposition: Admitted As Inpatient Condition: Fair Referrals: Dex Hutton DO [Primary Care Provider] - Forms: ED Satisfaction Letter SOB HPI - General Chief Complaint: ED Shortness of Breath/Dyspnea Stated Complaint: SHORTNESS OF BREATH Source: patient, EMS Mode of arrival: EMS Limitations: no limitations Nursing Notes Reviewed: Yes Vital Signs Reviewed: Yes - History of Present Illness Presents to the ED via EMS with complaint of shortness of breath. States he started feeling short of breath around midnight. He called EMS who came and gave him a nebulizer treatment. He was feeling better and they did not transport at that time. Started having trouble breathing again around 5 AM, took 2 puffs of his albuterol and did not feel better so he called the squad back and now presents to the ED. He has a long-standing history of COPD and asthma and wears 3 L of oxygen at home. He reports compliance with his medications. He states he occasionally has a cough and sometimes brings up white or yellow phlegm. He is also had some rhinorrhea and sneezing over the past few days and states he had a brief nosebleed earlier this morning that resolved on its own. He denies any sore throat. No chest pain. No fever or chills. No lower extremity swelling. Review of records shows that this is his sixth visit for shortness of breath since September 21. He had a brief admission from October 24 to October 26 for COPD exacerbation and was seen again here in the ED on October 30 for shortness of breath. He has not followed up with his primary care doctor since any of these visits. - Related Data Home Medications Medication Instructions Recorded Confirmed Aspirin 81 mg PO DAILY 03/02/15 11/07/17 Budesonide/Formoterol 160/4.5 2 puff IH BIDR 03/02/15 11/07/17 [Symbicort] Levothyroxine [Synthroid] 150 mcg PO DAILY 03/02/15 11/07/17 Phenytoin ER [Dilantin ER] 100 mg PO TID 03/02/15 11/07/17 Umeclidinium [place] [Incruse 1 puff IH DAILY 05/25/17 11/07/17 Ellipta] Albuterol Sulfate [Ventolin Hfa] 2 puff IH Q6H PRN 08/20/17 11/07/17 Previous Rx's Medication Instructions Recorded Montelukast [Singulair] 10 mg PO DAILY #30 tablet 06/22/15 Metoprolol XL (24 HR) Succ [Toprol 25 mg PO DAILY #30 tab.er.24h 07/31/17 Xl] Lactobacillus [Culturelle] 1 each PO BID #6 cap.sprink 10/25/17 predniSONE [PredniSONE] 10 mg PO BIDWM #6 tablet 10/25/17 Allergies Allergy/AdvReac Type Severity Reaction Status Date / Time No Known Allergies Allergy Verified 10/24/17 06:56 Constitutional: Denies: fever, chills, weakness, weight change Eyes: Denies: eye pain, eye discharge, vision change ENT ED: Denies: ear pain, throat pain, dental pain, hearing loss, epistaxis, congestion, dysphagia Cardiovascular: Denies: chest pain, palpitations, dyspnea on exertion, edema, syncope Respiratory: Reports: as per HPI, cough, dyspnea, wheezes. Denies: hemoptysis, stridor Gastrointestinal: Denies: abdominal pain, nausea, vomiting, diarrhea, constipation, hematemesis, melena, hematochezia Genitourinary: Denies: urgency, dysuria, frequency, hematuria Musculoskeletal: Denies: back pain, neck pain, arthralgia, myalgia Integumentary: Denies: rash, abrasion, lesions Neurological: Denies: headache, weakness, numbness, paresthesias, confusion, abnormal gait, vertigo Psychiatric: Denies: anxiety, depression, suicidal thoughts, homicidal thoughts , auditory hallucinations, visual hallucinations Endocrine: Denies: fatigue Hematological/Lymphatic: Denies: easy bleeding, easy bruising Allergic/Immunologic: Denies: facial swelling, urticaria Past Medical History - Past Medical History Medical history: Reports: asthma, cancer, COPD, hyperlipidemia, hypertension, seizures, thyroid disease, syncope, other Surgical history: Reports: colectomy Psychiatric history: Reports: no psych history - Social History Smoking Status: Former smoker Smokeless Tobacco Status: No Alcohol use: Reports: none Drug use: Reports: none Physical Exam - General General appearance: alert, in no apparent distress - Head Head exam: atraumatic, normocephalic, normal inspection - Eye Eye exam: Present: normal appearance, PERRL, EOMI - ENT ENT exam: normal exam, normal oropharynx, mucous membranes moist - Expanded ENT Exam Nasal speculum exam: Bilateral: normal - Neck Neck exam: Present: normal inspection, full ROM, trachea midline - Chest Chest inspection: Present: normal inspection, symmetric chest wall rise - Respiratory Respiratory exam: Present: wheezes - Expanded Respiratory Exam Location: wheezes: Left, Right, Upper, Lower - Cardiovascular Cardiovascular exam: Present: regular rate, normal rhythm, normal heart sounds - Abdominal Exam Abdominal exam: Present: soft, Non-Tender. Absent: tenderness, distention, guarding, rebound, rigidity - Extremities Exam Extremities exam: Present: normal inspection, full ROM. Absent: tenderness, pedal edema - Neurological Exam Neurological exam: Present: alert, oriented X3 - Psychiatric Psychiatric exam: Present: normal affect, normal mood - Skin Skin exam: Present: warm, dry, intact, normal color Course Course Narrative: Patient presents to the ED complaining of shortness of breath. He is a frequent visitor to this ED for shortness of breath and COPD exacerbations with last visit 1 week ago. He has diffuse scattered wheezing on exam with a wet sounding cough. Oxygen saturation is 90 on 4 L. Will give 2 duonebs and steroids and obtain a chest x-ray. Per EMS report patient was taking a breathing treatment at home on their arrival but his oxygen concentrator was off. - Reevaluation(s) Reevaluation #1: Patient reports feeling slightly better since receiving breathing treatments but he still has diffuse wheezing. Oxygen saturation remains at 90-91 on 4 L and patient normally only wears 2-3 L at home. Chest x-ray does not show any pneumonia. Given his poor oxygen saturations and persistent wheezing he will need to be admitted for continued treatment. I discussed this with the patient he is in agreement. We have patient hospitalist on-call and I am awaiting callback at this time. Time: 07:27 Reevaluation #2: I have spoken to the hospitalist agronomy research manager, Dr. Paz, who has agreed to accept the patient. Time: 08:05 Vital Signs Temperature 97.8 F 11/07/17 05:58 Pulse Rate 77 11/07/17 05:58 Respiratory Rate 18 11/07/17 05:58 Blood Pressure 113/78 11/07/17 05:58 O2 Sat by Pulse Oximetry 91 11/07/17 05:58 Temperature 97.8 F 11/07/17 05:58 Pulse Rate 82 11/07/17 07:10 Respiratory Rate 18 11/07/17 07:10 Blood Pressure 113/61 11/07/17 07:10 O2 Sat by Pulse Oximetry 93 11/07/17 07:10 Oxygen Delivery Oxygen Delivery Nasal Cannula Shortness of Breath/Dyspnea - Differential Diagnosis Likely: acute exacerbation of chronic obstructive airways disease, pneumonia - Medical Records Medical records reviewed: Yes I reviewed the patient's medical records. - Radiology Data Radiology results reviewed: Yes I reviewed the patient's radiology results.
[2017-11-07] MEDS ORDERED: Ipratropium/Albuterol Neb 3 ML IH ONE ×2 (06:19)
[2017-11-07] MEDS ORDERED: methylPREDNISolone 125 MG/2 ML VIAL IM STA (06:19)
[2017-11-07] MEDS ORDERED: Naloxone 0.4 MG/ML INJ IVP PRN ×2 (07:57→08:38)
[2017-11-07] MEDS: Aspirin 81 MG TAB.CHEW PO SCH (09:15)
[2017-11-07] MEDS: Metoprolol XL (24 HR) Succ 25 MG TAB.ER.24H PO SCH (09:15)
[2017-11-07] MEDS: [UNRECOGNIZED DRUG - OTHER] IH SCH (09:33)
[2017-11-07] MEDS: Budesonide/Formoterol 160/4.5 MDI IH SCH ×2 (10:28→21:36)
--- NOTE | 2017-11-07 10:29 | Internal Med History&Physical ---
Date of Encounter: 11/07/17 Time of Encounter: 10:10 Assessment and Plan (1) COPD exacerbation Current visit: No Status: Acute Will order labs since not done in the ER. Will do repeat chest CT since July 2017 study showed left lower lobe bronchial wall thickening and airspace disease with follow-up suggested. (2) Hypothyroidism Current visit: No Status: Acute TSH was normal at 2.820 on 10/24/2017. Continue present dose Synthroid Qualifiers: Hypothyroidism type: unspecified Qualified Code(s): E03.9 - Hypothyroidism , unspecified Internal Medicine - H&P: HPI Chief complaint: Dyspnea Admitted From: Emergency Dept Plans for Post Hospital Care: Home History of present illness: Mr. Vail is a 72 year old male who came to emergency room complaining of dyspnea onset last evening. He reports he called the squad shortly before midnight. He was treated at home and improved significantly and chose not to come to emergency room. A few hours later his breathing worsened again and the squad was called a second time. He was transported to emergency room and evaluated and felt to have exacerbation of COPD. He was admitted to [facility] floor for ongoing care needs. He was discharged from [facility] approximately 2 weeks ago with similar complaints. He smoked from age [age] up to 2 packs per day. He wears oxygen at home 16/01 and has a diagnosis of COPD. Past Med Surg Social Fam HX - Past Medical History Medical history: asthma, cancer, COPD, hyperlipidemia, hypertension, seizures, thyroid disease, syncope, other Psychiatric history: no psych history - Past Surgical History Surgical History: colectomy - Social History Smoking Status: Former smoker Smokeless Tobacco Status: No Alcohol use: none Drug use: none - Family History Mother Adopted: No Family Member Ethnicity: Non- Living Status: Hx Family Cardiac Disorders: No Hx Family Respiratory Disorders: Yes (TB, treated) Hx Family Cancer: No Hx Family GI Disorders: No Hx Family Endocrine Disorder: No Hx Family Neuromuscular Disorders: No Hx Family Neurologic Disorders: No Hx Family HEENT Disorders: No Hx Family Autoimmune Disorders: No Father Adopted: No Family Member Ethnicity: Non- Living Status: Hx Family Cardiac Disorders: No Hx Family Respiratory Disorders: No Hx Family Cancer: No Hx Family GI Disorders: No Hx Family Endocrine Disorder: No Hx Family Neuromuscular Disorders: No Hx Family Neurologic Disorders: No Hx Family HEENT Disorders: No Hx Family Autoimmune Disorders: No Internal Medicine - H&P: Meds Aspirin 81 mg PO DAILY 03/02/15 [History] Budesonide/Formoterol 160/4.5 [Symbicort] 2 puff IH BIDR 03/02/15 [History] Levothyroxine [Synthroid] 150 mcg PO DAILY 03/02/15 [History] Phenytoin ER [Dilantin ER] 100 mg PO TID 03/02/15 [History] Montelukast [Singulair] 10 mg PO DAILY #30 tablet 06/22/15 [Rx] Umeclidinium [place] [Incruse Ellipta] 1 puff IH DAILY 05/25/17 [History] Metoprolol XL (24 HR) Succ [Toprol Xl] 25 mg PO DAILY #30 tab.er.24h 07/31/17 [ Rx] Albuterol Sulfate [Ventolin Hfa] 2 puff IH Q6H PRN 08/20/17 [History] Lactobacillus [Culturelle] 1 each PO BID #6 cap.sprink 10/25/17 [Rx] predniSONE [PredniSONE] 10 mg PO BIDWM #6 tablet 10/25/17 [Rx] 3 Allergy/AdvReac Type Severity Reaction Status Date / Time No Known Allergies Allergy Verified 10/24/17 06:56 All Systems PM: A 10-system review of systems was performed and is negative for pertinent findings except as documented above in the HPI. Review of systems: Review of systems from his earlier October [address] [facility] hospitalization were reviewed and revised as below. Gen.: His weight has increased from 91.99 kg on 07/12/2015 to 93.468 kg now Cardiovascular: He has no known hypertension heart failure angina DVT pulmonary embolus or NV. He had a heart catheter January 2014 which showed 30% lesion in the mid LAD and normal LVEF at 65%. Respiratory: As per history of present illness GI: He had sigmoidectomy with primary anastomosis 07/2013 for colon cancer. He developed a ventral abdominal hernia postoperatively and is now using an elastic abdominal binder. He is presumed cancer free. He had repeat colonoscopy 05/25/2017 at [facility] which did not show significant pathology. He denies other disorders of his liver gallbladder or exocrine pancreas. : No history of hematuria dysuria or kidney stones. He has a liver lesion approximately 3.8 cm maximum diameter seen on CT scan that has been stable and felt to be benign. Neurologic: No history of large distribution strokes. He claims he had seizures from childhood but has not had recurrent episode for several years while using Dilantin. Endocrine: He has hypothyroidism and history of hyperlipidemia but no known diabetes Hematology/oncology: He had colon cancer as per above. He has had no other malignancies or anemia. Psychiatric: He had no anxiety depression or other mental health issues Musk skeletal: He has no known gout arthritis or osteoporosis. - Constitutional Vitals: Temp Pulse Resp BP Pulse Ox 97.9 F 82 20 122/82 88 11/07/17 09:05 11/07/17 09:05 11/07/17 09:05 11/07/17 09:05 11/07/17 09:05 Exam: Gen.: He is a well-developed well-nourished male lying comfortably in bed who appears in no acute distress at present time HEENT: Head is atraumatic and normocephalic. Eyes: EOMI. There is no scleral icterus. Mouth: Mucosa is moist. Neck: Supple and nontender. There is no thyromegaly or adenopathy noted. Heart: Regular without murmurs gallops or ectopics Lungs: No wheezes or crackles are heard. Abdomen: He has a ventral abdominal hernia with binder in place. Abdomen is nontender to palpation. Extremities: He has chronic venous stasis pigmentation changes bilaterally of his lower legs. There is trace to 1+ edema of the left lower leg and 0 - trace edema the right lower leg. He has minimal DJD changes of his hands. Neurologic: Mental status: He is talkative and a good historian. Cranial nerves : Smile is symmetric. Forehead wrinkles bilaterally. Tongue protrudes midline. EOMI. Motor: There is no pronator drift. Cerebellar: Finger to nose is intact bilaterally. Skin: Warm and dry - VTE Reasons for not Prescribing Prophylaxis: Treatment not Indicated - Low risk for VTE
[2017-11-07 13:34] LABS: Basophils % 0.6 %; Eosinophils % 0.2 %; Hematocrit 41.6 % (37.5-50.1); Hemoglobin 13.8 g/dL (12.9-16.9); Immature Granulocytes % 0.2 % (0-4); Lymphocytes # 0.3 K/mcL (0.6-4.6); Lymphocytes % 5.5 %; Mean Corpuscular HGB Conc 33.2 g/dL (31.6-35.5); Mean Corpuscular Hemoglobin 32.2 pg (28.0-33.3); Mean Platelet Volume 11.2 fL (9.4-12.4); Monocytes # 0.1 K/mcL (0.0-1.3); Monocytes % 1.5 %; Neutrophils # 4.9 K/mcL (1.6-8.9); Platelet Count 179 K/mcL (140-400); Red Blood Count 4.29 M/mcL (4.19-5.50); Red Cell Distribution Width 13.5 % (11.5-14.5)
[2017-11-07 13:47] LABS: BUN/Creatinine Ratio 17 (6-26); Blood Urea Nitrogen 21 mg/dL (8-23); Calcium 9.5 mg/dL (8.6-10.3); Carbon Dioxide 31 mEq/L (23-29); Chloride 96 mEq/L (98-107); Glucose 193 mg/dL (70-105); Osmolality,Calculated 288 (280-300); Potassium 5.3 mEq/L (3.5-5.1); Sodium 135 mEq/L (136-145); eGFR For African Americans > 60 (> 60); eGFR For Non-African Americans 56 (> 60)
[2017-11-08 06:50] VITALS: BP 129/84
[2017-11-08] MEDS: Metoprolol XL (24 HR) Succ 25 MG TAB.ER.24H PO SCH (08:44)
[2017-11-08] MEDS: Aspirin 81 MG TAB.CHEW PO SCH (08:44)
--- NOTE | 2017-11-08 09:54 | Discharge Summary ---
Date of Encounter: 11/08/17 Time of Encounter: 09:45 - Discharge Diagnosis (1) COPD exacerbation Priority: Primary Status: Acute (2) Hypothyroidism Priority: Secondary Status: Acute Qualifiers: Hypothyroidism type: unspecified Qualified Code(s): E03.9 - Hypothyroidism , unspecified (3) Hyperkalemia Priority: Secondary Status: Acute (4) Acute renal insufficiency Priority: Secondary Status: Acute Hospital course: Mr. Vail is a 72 year old male who came to emergency room complaining of dyspnea onset last evening. He reports he called the squad shortly before midnight. He was treated at home and improved significantly and chose not to come to emergency room. A few hours later his breathing worsened again and the squad was called a second time. He was transported to emergency room and evaluated and felt to have exacerbation of COPD. He was admitted to [facility] for ongoing care needs. Initial orders were written by the emergency room physician. I saw him on November 07 and performed the history and physical. Chest CT was ordered to further evaluate and follow-up on previously seen left lung abnormality. The CT showed improvement overall compared to the July [address] follow- up was mentioned. He felt clinically improved on November 08 and stable for discharge home. On additional questioning the day of discharge he admitted he had not been taking Symbicort at home due to prescription lapse. This will be renewed at discharge. He will follow with his PCP Dr. Hutton within 1 week. Potassium was minimally elevated at 5.3. Creatinine was elevated at 1.27 with estimated GFR 56. Dr. Hutton can monitor these. - Time Spent with Patient Total time spent providing and/or coordinating discharge services: - Discharge Medications Prescriptions: Budesonide/Formoterol 160/4.5 [Symbicort 160/4.5] 2 puff IH BIDR #1 inhaler Home Medications: Aspirin 81 mg PO DAILY 03/02/15 [History] Budesonide/Formoterol 160/4.5 [Symbicort] 2 puff IH BIDR 03/02/15 [History] Levothyroxine [Synthroid] 150 mcg PO DAILY 03/02/15 [History] Phenytoin ER [Dilantin ER] 100 mg PO TID 03/02/15 [History] Montelukast [Singulair] 10 mg PO DAILY #30 tablet 06/22/15 [Rx] Umeclidinium [place] [Incruse Ellipta] 1 puff IH DAILY 05/25/17 [History] Metoprolol XL (24 HR) Succ [Toprol Xl] 25 mg PO DAILY #30 tab.er.24h 07/31/17 [ Rx] Albuterol Sulfate [Ventolin Hfa] 2 puff IH Q6H PRN 08/20/17 [History] Lactobacillus [Culturelle] 1 each PO BID #6 cap.sprink 10/25/17 [Rx] predniSONE [PredniSONE] 10 mg PO BIDWM #6 tablet 10/25/17 [Rx] Budesonide/Formoterol 160/4.5 [Symbicort 160/4.5] 2 puff IH BIDR #1 inhaler [Rx] Allergies/Adverse Reactions: 3 Allergy/AdvReac Type Severity Reaction Status Date / Time No Known Allergies Allergy Verified 10/24/17 06:56 Date of admission: 11/07/17 08:23 Primary care physician: Dex Hutton DO - Constitutional Vitals: Temp Pulse Resp BP Pulse Ox 98.6 F 22 90 129/84 91 11/08/17 06:00 11/08/17 06:00 11/08/17 06:00 11/08/17 06:00 11/08/17 06:00 - Patient Status Disposition: Home Health Service Condition: Fair Overall status at discharge: patient is progressing back to baseline - Discharge Instructions Follow Up With: Dex Hutton DO [Primary Care Provider] - 1 week - Diet and Activity Activity: resume usual activities as tolerated, wear oxygen at all times Diet: advance to your usual diet - VTE Reasons for not Prescribing Prophylaxis: Treatment not Indicated - Low risk for VTE
--- NOTE | 2017-11-08 10:00 | Physician Discharge Referral ---
Home Health/Hosp Referral Info Transfer to: Home Health Attending Provider: Jackson Provider in Charge Post Discharge: PCP (Anni) - Diagnosis (1) COPD exacerbation Priority: Primary Status: Acute (2) Hypothyroidism Priority: Secondary Status: Acute (3) Hyperkalemia Priority: Secondary Status: Acute (4) Acute renal insufficiency Priority: Secondary Status: Acute - Respiratory Orders Oxygen / L per min (2 L/m by nasal cannula 16/01) Smoking Cessation: Smoking cessation has been advised. For more information, call the [place] [employer] Quit Line at [phone]-IJEL-NOW. - Diet/Nutrition Diet/Nutrition Orders: Regular - Activity Activity Orders: Ambulate - Services Needed Following services are medically necessary services: Nursing, Home Health Aide, Physical Therapy, Occupational Therapy - Transfer Medications Prescriptions: Budesonide/Formoterol 160/4.5 [Symbicort 160/4.5] 2 puff IH BIDR #1 inhaler Home Medications: Aspirin 81 mg PO DAILY 03/02/15 [History] Budesonide/Formoterol 160/4.5 [Symbicort] 2 puff IH BIDR 03/02/15 [History] Levothyroxine [Synthroid] 150 mcg PO DAILY 03/02/15 [History] Phenytoin ER [Dilantin ER] 100 mg PO TID 03/02/15 [History] Montelukast [Singulair] 10 mg PO DAILY #30 tablet 06/22/15 [Rx] Umeclidinium [place] [Incruse Ellipta] 1 puff IH DAILY 05/25/17 [History] Metoprolol XL (24 HR) Succ [Toprol Xl] 25 mg PO DAILY #30 tab.er.24h 07/31/17 [ Rx] Albuterol Sulfate [Ventolin Hfa] 2 puff IH Q6H PRN 08/20/17 [History] Lactobacillus [Culturelle] 1 each PO BID #6 cap.sprink 10/25/17 [Rx] predniSONE [PredniSONE] 10 mg PO BIDWM #6 tablet 10/25/17 [Rx] Budesonide/Formoterol 160/4.5 [Symbicort 160/4.5] 2 puff IH BIDR #1 inhaler [Rx] Allergies/Adverse Reactions: 3 Allergy/AdvReac Type Severity Reaction Status Date / Time No Known Allergies Allergy Verified 10/24/17 06:56 Certification: Further, I certify that my clinical findings support that this patient is homebound (i.e. absences from home require considerable and taxing effort and are for medical reasons or orthodoxy services or infrequently or short duration when for other reasons) because: Homebound Reason: Leaving home requires considerable and taxing effort due to condition (Severe COPD with dyspnea on exertion.) Attestation: My signature below is to certify that this patient is under my care and that I, or nurse practitioner, or a physician's operating room assistant working with me, has a face-to -face encounter with this patient.
[2017-11-08] MEDS: Budesonide/Formoterol 160/4.5 MDI IH SCH (10:45)
[2017-11-08] MEDS: [UNRECOGNIZED DRUG - OTHER] IH SCH (10:50)
== END 2017-11-08 12:40 | disposition home health service (06) ==
LOC: INPPIK 05:53 → EMEROOPIK 05:53 → INPPIK 08:33
PROVIDERS: ADMIT Internal Medicine; ATTEND Internal Medicine

== ENCOUNTER 2017-11-28 05:12 | Inpatient (IN) ==
[2017-11-28] MEDS ORDERED: methylPREDNISolone 125 MG/2 ML VIAL IVP ONE (05:36)
[2017-11-28] MEDS ORDERED: Ipratropium/Albuterol Neb 3 ML IH ONE (05:36)
--- NOTE | 2017-11-28 05:41 | Emergency Department Note ---
Disposition Clinical Impression: Acute exacerbation of chronic obstructive airways disease Disposition: Admitted As Inpatient Condition: Good Time of Disposition: 06:20 (Dr Paz) SOB HPI - General Chief Complaint: ED Shortness of Breath/Dyspnea Stated Complaint: Dyspnea onset 03:00 while at rest Time Seen by Provider: 11/28/17 05:29 Source: patient, EMS Mode of arrival: EMS Limitations: no limitations Nursing Notes Reviewed: Yes Vital Signs Reviewed: Yes - History of Present Illness Pt Subjective Complaint: shortness of breath Onset (ago): Just FUNDER Context: other (Patient was sleeping when he felt like he was having shortness of breath. He took his inhaler treatment with no improvement.) Consistency/Duration: constant Improves with: oxygen, bronchodilators Worsens with: nothing Known history of: COPD Associated symptoms: Reports: cough, sputum production. Denies: chest pain, pain with inspiration, fever, wheezing, orthopnea, lower extremity pain, polyuria, polydipsia, parasthesias, palpitations, hemoptysis, diaphoresis, nausea/vomiting, syncope, abdominal pain, rash, sense of impending doom Treatment prior to arrival: bronchodilator Cough present: Yes Cough Description: Involuntary Cough Frequency: Intermittent Sputum production: Yes Sputum Amount: Small Sputum Color: Yellow - Related Data Home Medications Medication Instructions Recorded Confirmed Aspirin 81 mg PO DAILY 03/02/15 11/28/17 Budesonide/Formoterol 160/4.5 2 puff IH BIDR 03/02/15 11/28/17 [Symbicort] Levothyroxine [Synthroid] 150 mcg PO DAILY 03/02/15 11/28/17 Phenytoin ER [Dilantin ER] 100 mg PO TID 03/02/15 11/28/17 Umeclidinium [place] [Incruse 1 puff IH DAILY 05/25/17 11/28/17 Ellipta] Albuterol Sulfate [Ventolin Hfa] 2 puff IH Q6H PRN 08/20/17 11/28/17 Previous Rx's Medication Instructions Recorded Montelukast [Singulair] 10 mg PO DAILY #30 tablet 06/22/15 Metoprolol XL (24 HR) Succ [Toprol 25 mg PO DAILY #30 tab.er.24h 07/31/17 Xl] Lactobacillus [Culturelle] 1 each PO BID #6 cap.sprink 10/25/17 predniSONE [PredniSONE] 10 mg PO BIDWM #6 tablet 10/25/17 Budesonide/Formoterol 160/4.5 2 puff IH BIDR #1 inhaler 11/08/17 [Symbicort 160/4.5] Doxycycline 100 mg PO BID #14 capsule 11/28/17 predniSONE [Prednisone] 50 mg PO DAILY #5 tablet 11/28/17 Allergies Allergy/AdvReac Type Severity Reaction Status Date / Time No Known Allergies Allergy Verified 11/28/17 05:51 All systems ED: reviewed and negative except as stated. Review of Systems: As Per HPI Past Medical History - Past Medical History Medical history: Reports: asthma, cancer, COPD, hyperlipidemia, hypertension, seizures, thyroid disease, syncope, other Surgical history: Reports: colectomy Psychiatric history: Reports: no psych history - Social History Smoking Status: Former smoker Smokeless Tobacco Status: No Alcohol use: Reports: none Drug use: Reports: none Physical Exam - General Limitations: no limitations General appearance: alert, in no apparent distress - Head Head exam: atraumatic, normocephalic, normal inspection - Eye Eye exam: Present: normal appearance, PERRL, EOMI - Neck Neck exam: Present: normal inspection, full ROM, trachea midline - Chest Chest inspection: Present: normal inspection, symmetric chest wall rise - Respiratory Respiratory exam: Present: prolonged expiratory phase. Absent: wheezes, stridor - Expanded Respiratory Exam Location: decreased breath sounds: Left, Right, Upper, Lower - Cardiovascular Cardiovascular exam: Present: regular rate, normal rhythm, normal heart sounds. Absent: JVD - Abdominal Exam Abdominal exam: Present: soft, Non-Tender. Absent: tenderness, distention, guarding, rebound, rigidity - Extremities Exam Extremities exam: Present: normal inspection, full ROM. Absent: tenderness, pedal edema - Back Exam Back exam: Present: normal inspection, full ROM. Absent: tenderness - Neurological Exam Neurological exam: Present: alert, oriented X3, CN II-XII intact - Psychiatric Psychiatric exam: Present: normal affect, normal mood - Skin Skin exam: Present: warm, dry, intact, normal color Course Vital Signs Temperature 97.1 F L 11/28/17 05:17 Pulse Rate 81 11/28/17 05:17 Respiratory Rate 18 11/28/17 05:17 Blood Pressure 132/90 11/28/17 05:17 O2 Sat by Pulse Oximetry 89 11/28/17 05:17 Temperature 97.9 F 12/01/17 07:17 Pulse Rate 68 12/01/17 07:17 Respiratory Rate 18 12/01/17 07:17 Blood Pressure 115/82 12/01/17 07:17 O2 Sat by Pulse Oximetry 95 12/01/17 07:17 Oxygen Delivery Oxygen Delivery Nasal Cannula Shortness of Breath/Dyspnea - MDM Narrative Medical decision making narrative: 72-year-old with COPD with exacerbation improve after treatment. The patient was ambulated in the department but became hypoxemic in the lower 80s with his baseline home oxygen. The patient will be admitted to the hospital for further stabilization. He is stable to be admitted to the medical surgical floor. Hospitalist informed current findings and agreed to admit the patient. - Medical Records Medical records reviewed: Yes I reviewed the patient's medical records. - Lab Data Lab results reviewed: Yes I reviewed the patient's lab results. Result diagrams: 11/29/17 06:04 11/28/17 05:16 Lab Results 11/28/17 11/28/17 11/29/17 Range/Units 05:16 05:16 06:04 WBC 6.0 4.8 (4.3-11.1) K/mcL RBC 4.38 4.40 (4.19-5.50) M/mcL Hgb 14.1 14.2 (12.9-16.9) g/dL Hct 42.5 41.8 (37.5-50.1) % MCV 97.0 95.0 (83.0-100.0) fL MCH 32.2 32.3 (28.0-33.3) pg MCHC 33.2 34.0 (31.6-35.5) g/dL RDW 13.9 13.5 (11.5-14.5) % Plt Count 222 218 (140-400) K/mcL MPV 10.8 10.8 (9.4-12.4) fL Immature Gran % 0.2 0.2 (0-4) % Seg Neutrophils % 60.9 60.1 % Lymphocytes % 13.9 20.6 % Monocytes % 8.1 12.9 % Eosinophils % 15.6 5.6 % Basophils % 1.3 0.6 % Neutrophils # 3.6 2.9 (1.6-8.9) K/mcL Lymphocytes # 0.8 1.0 (0.6-4.6) K/mcL Monocytes # 0.5 0.6 (0.0-1.3) K/mcL Eosinophils # 0.9 H 0.3 (0.0-0.6) K/mcL Basophils # 0.1 0.0 (0.0-0.2) K/mcL Sodium 138 (136-145) mEq/L Potassium 3.9 (3.5-5.1) mEq/L Chloride 102 (98-107) mEq/L Carbon Dioxide 28 (23-29) mEq/L BUN 10 (8-23) mg/dL Creatinine 0.95 (0.70-1.30) mg/dL Est GFR ( Amer) > 60 (> 60) Est GFR (Non-Af Amer) > 60 (> 60) BUN/Creatinine Ratio 11 (6-26) Glucose 116 H (70-105) mg/dL Calculated Osmolality 286 (280-300) Calcium 9.1 (8.6-10.3) mg/dL B-Natriuretic Peptide (Less than 100) pg/mL 11/29/17 Range/Units 06:04 WBC (4.3-11.1) K/mcL RBC (4.19-5.50) M/mcL Hgb (12.9-16.9) g/dL Hct (37.5-50.1) % MCV (83.0-100.0) fL MCH (28.0-33.3) pg MCHC (31.6-35.5) g/dL RDW (11.5-14.5) % Plt Count (140-400) K/mcL MPV (9.4-12.4) fL Immature Gran % (0-4) % Seg Neutrophils % % Lymphocytes % % Monocytes % % Eosinophils % % Basophils % % Neutrophils # (1.6-8.9) K/mcL Lymphocytes # (0.6-4.6) K/mcL Monocytes # (0.0-1.3) K/mcL Eosinophils # (0.0-0.6) K/mcL Basophils # (0.0-0.2) K/mcL Sodium (136-145) mEq/L Potassium (3.5-5.1) mEq/L Chloride (98-107) mEq/L Carbon Dioxide (23-29) mEq/L BUN (8-23) mg/dL Creatinine (0.70-1.30) mg/dL Est GFR ( Amer) (> 60) Est GFR (Non-Af Amer) (> 60) BUN/Creatinine Ratio (6-26) Glucose (70-105) mg/dL Calculated Osmolality (280-300) Calcium (8.6-10.3) mg/dL B-Natriuretic Peptide 164 H (Less than 100) pg/mL - EKG Data EKG attestation: Yes I reviewed and interpreted this EKG. Rate: Reports: normal Rhythm: Reports: NSR Heart block present: Reports: 1st Degree Interpretation: Reports: nonspecific ST-T wave changes Critical Care Time Critical Care Time: Yes Total Critical Care Time: 40 Attestation: Critical care performed: Time is exclusive of separately billable procedures. Time includes: direct patient care, patient reassessment, coordination of patient care, interpretation of data (laboratory data, radiology data, and respiratory data), review of patient's medical records, medical consultation and documentation of patient care. Procedures included in critical care time: Procedures excluded from critical care time:
[2017-11-28 05:42] LABS: Basophils # 0.1 K/mcL (0.0-0.2); Basophils % 1.3 %; Eosinophils # 0.9 K/mcL (0.0-0.6); Eosinophils % 15.6 %; Hematocrit 42.5 % (37.5-50.1); Hemoglobin 14.1 g/dL (12.9-16.9); Immature Granulocytes % 0.2 % (0-4); Lymphocytes # 0.8 K/mcL (0.6-4.6); Lymphocytes % 13.9 %; Mean Corpuscular HGB Conc 33.2 g/dL (31.6-35.5); Mean Corpuscular Hemoglobin 32.2 pg (28.0-33.3); Mean Platelet Volume 10.8 fL (9.4-12.4); Monocytes # 0.5 K/mcL (0.0-1.3); Monocytes % 8.1 %; Neutrophils # 3.6 K/mcL (1.6-8.9); Platelet Count 222 K/mcL (140-400); Red Blood Count 4.38 M/mcL (4.19-5.50); Red Cell Distribution Width 13.9 % (11.5-14.5); Segmented Neutrophils % 60.9 %
[2017-11-28 05:56] LABS: BUN/Creatinine Ratio 11 (6-26); Blood Urea Nitrogen 10 mg/dL (8-23); Calcium 9.1 mg/dL (8.6-10.3); Carbon Dioxide 28 mEq/L (23-29); Chloride 102 mEq/L (98-107); Glucose 116 mg/dL (70-105); Osmolality,Calculated 286 (280-300); Potassium 3.9 mEq/L (3.5-5.1); Sodium 138 mEq/L (136-145); eGFR For African Americans > 60 (> 60); eGFR For Non-African Americans > 60 (> 60)
[2017-11-28] MEDS ORDERED: Doxycycline 100 MG CAPSULE PO ONE (06:18)
[2017-11-28] MEDS ORDERED: Ondansetron 4 MG/2 ML VIAL IVP PRN (08:59)
[2017-11-28] MEDS ORDERED: traMADol 50 MG TABLET PO PRN (08:59)
[2017-11-28] MEDS ORDERED: *HR* OxyCODONE Immed Rel 5 MG TABLET PO PRN (08:59)
[2017-11-28] MEDS ORDERED: Acetaminophen 325 MG TABLET PO PRN (08:59)
[2017-11-28] MEDS ORDERED: Ibuprofen 400 MG TABLET PO PRN (08:59)
[2017-11-28] MEDS ORDERED: Ketorolac 30 MG/ML VIAL IVP PRN (08:59)
[2017-11-28] MEDS ORDERED: Naloxone 0.4 MG/ML INJ IVP PRN (08:59)
[2017-11-28] MEDS: Metoprolol XL (24 HR) Succ 25 MG TAB.ER.24H PO SCH ×2 (09:27→11:57)
[2017-11-28] MEDS: Lactobacillus 1 EACH CAP.SPRINK PO SCH ×2 (09:27→20:31)
[2017-11-28] MEDS: Aspirin 81 MG TAB.CHEW PO SCH (09:28)
[2017-11-28] MEDS ORDERED: Budesonide/Formoterol 160/4.5 MDI IH SCH (10:00)
[2017-11-28] MEDS: Budesonide/Formoterol 160/4.5 MDI IH SCH ×2 (10:35→20:45)
[2017-11-28] MEDS: INCRUSE ELIPTA IH SCH (11:57)
--- NOTE | 2017-11-28 15:21 | Internal Med History&Physical ---
Date of Encounter: 11/28/17 Time of Encounter: 14:55 Assessment and Plan (1) COPD exacerbation Current visit: No Status: Acute He was given doxycycline and Solu-Medrol in emergency room. Will check BN peptide and continue inhalers. (2) Seizures Current visit: No Status: Chronic Continue Dilantin. (3) Hypothyroidism Current visit: No Status: Acute TSH was normal at 2.82 on 10/24/2017. Continue present dose Synthroid. Qualifiers: Hypothyroidism type: unspecified Qualified Code(s): E03.9 - Hypothyroidism , unspecified Internal Medicine - H&P: HPI Chief complaint: Dyspnea Admitted From: Emergency Dept Plans for Post Hospital Care: Home History of present illness: Mr. Vail is a 72 year old male who came to emergency room complaining of dyspnea onset 0300 today. He had been feeling weak and dizzy for a few hours previously. He took inhalers at home without relief. He was evaluated emergency room and felt to have exacerbation of COPD was admitted to [facility] floor for ongoing care needs. He was discharged from [facility] 11/08/2017 following admission for exacerbation of COPD. He has been hospitalized several times at [facility] in the past few years with similar complaints. He smoked from age [age] up 2 packs per day. He has a diagnosis of COPD and wears oxygen at home 16/01. Past Med Surg Social Fam HX - Past Medical History Medical history: asthma, cancer, COPD, hyperlipidemia, hypertension, seizures, thyroid disease, syncope, other Additional medical history: H/O large abdominal & right inguinal hernia secondary to previous colon surgery. Psychiatric history: no psych history - Past Surgical History Surgical History: colectomy Additional surgical history: Right ankle surgery when "in high school." - Social History Smoking Status: Former smoker Smokeless Tobacco Status: No Alcohol use: none Drug use: none - Family History Mother Adopted: No Family Member Ethnicity: Non- Living Status: Hx Family Cardiac Disorders: No Hx Family Respiratory Disorders: Yes (TB, treated) Hx Family Cancer: No Hx Family GI Disorders: No Hx Family Endocrine Disorder: No Hx Family Neuromuscular Disorders: No Hx Family Neurologic Disorders: No Hx Family HEENT Disorders: No Hx Family Autoimmune Disorders: No Father Adopted: No Family Member Ethnicity: Non- Living Status: Hx Family Cardiac Disorders: No Hx Family Respiratory Disorders: No Hx Family Cancer: No Hx Family GI Disorders: No Hx Family Endocrine Disorder: No Hx Family Neuromuscular Disorders: No Hx Family Neurologic Disorders: No Hx Family HEENT Disorders: No Hx Family Autoimmune Disorders: No Internal Medicine - H&P: Meds Aspirin 81 mg PO DAILY 03/02/15 [History] Budesonide/Formoterol 160/4.5 [Symbicort] 2 puff IH BIDR 03/02/15 [History] Levothyroxine [Synthroid] 150 mcg PO DAILY 03/02/15 [History] Phenytoin ER [Dilantin ER] 100 mg PO TID 03/02/15 [History] Montelukast [Singulair] 10 mg PO DAILY #30 tablet 06/22/15 [Rx] Umeclidinium [place] [Incruse Ellipta] 1 puff IH DAILY 05/25/17 [History] Metoprolol XL (24 HR) Succ [Toprol Xl] 25 mg PO DAILY #30 tab.er.24h 07/31/17 [ Rx] Albuterol Sulfate [Ventolin Hfa] 2 puff IH Q6H PRN 08/20/17 [History] Lactobacillus [Culturelle] 1 each PO BID #6 cap.sprink 10/25/17 [Rx] predniSONE [PredniSONE] 10 mg PO BIDWM #6 tablet 10/25/17 [Rx] Budesonide/Formoterol 160/4.5 [Symbicort 160/4.5] 2 puff IH BIDR #1 inhaler [Rx] Doxycycline 100 mg PO BID #14 capsule 11/28/17 [Rx] predniSONE [Prednisone] 50 mg PO DAILY #5 tablet 11/28/17 [Rx] 3 Allergy/AdvReac Type Severity Reaction Status Date / Time No Known Allergies Allergy Verified 11/28/17 05:51 All Systems PM: A 10-system review of systems was performed and is negative for pertinent findings except as documented above in the HPI. Review of systems: Review of systems from his October 2017 [facility] hospitalization were reviewed and revised as below. Gen.: His weight has decreased slightly from 91.99 kg on 07/12/2015 to 89.868 kg now Cardiovascular: He has no known hypertension heart failure angina DVT pulmonary embolus or MN. He had a heart catheter January 2014 which showed 30% lesion in the mid LAD and normal LVEF at 65%. Respiratory: As per history of present illness GI: He had sigmoidectomy with primary anastomosis 07/2013 for colon cancer. He developed a ventral abdominal hernia postoperatively and is now using an elastic abdominal binder. He is presumed cancer free. He had repeat colonoscopy 05/25/2017 at [facility] which did not show significant pathology. He denies other disorders of his liver gallbladder or exocrine pancreas. : No history of hematuria dysuria or kidney stones. He has a liver lesion approximately 3.8 cm maximum diameter seen on CT scan that has been stable and felt to be benign. Neurologic: No history of large distribution strokes. He claims he had seizures from childhood but has not had recurrent seizures for several years while using Dilantin. Endocrine: He has hypothyroidism and history of hyperlipidemia but no known diabetes Hematology/oncology: He had colon cancer as per above. He has had no other malignancies or anemia. Psychiatric: He had no anxiety depression or other mental health issues Musk skeletal: He has no known gout arthritis or osteoporosis. - Constitutional Vitals: Temp Pulse Resp BP Pulse Ox 97.1 F L 66 14 107/81 94 11/28/17 05:17 11/28/17 08:47 11/28/17 10:35 11/28/17 08:47 11/28/17 10:35 Exam: Gen.: He is a well-developed well-nourished male resting comfortably in bed who appears in no acute distress at present time HEENT: Head is atraumatic and normocephalic. Eyes: EOMI. There is no scleral icterus. Mouth: Mucosa is moist. Neck: Supple and nontender. There is no thyromegaly or adenopathy noted. Heart: Regular without murmurs gallops or ectopics Lungs: No wheezes or crackles are heard. Abdomen: He is wearing an abdominal binder. No masses or guarding are noted. Extremities: There is no cyanosis edema or clubbing noted. Dorsalis pedis and posttibial pulses are trace palpable bilaterally. He has a deformity of his left great toe on the medial side from partial amputation (?). He has flexion deformity at the left third finger DIP joint. Neurologic: Mental status: He is talkative and a fairly good historian. Cranial nerves: Smile is symmetric. Forehead wrinkles bilaterally. Tongue protrudes midline. EOMI. Motor: There is no pronator drift. Cerebellar: Finger to nose is intact bilaterally. Skin: Warm and dry Internal Med - H&P Results - Labs CBC & Chem 7: 11/28/17 05:16 11/28/17 05:16
--- NOTE | 2017-11-28 16:39 | Electrocardiograph Report ---
[place] [id number] Test Date: 2017-11-28 Pat Name: Nirmal Vail Department: [id number] Room: [facility] Gender: M General Teller: [id number] : 1945 Requested By: Patrick Naik Order Number: [id number] Reading MD: Nixon Estrella Measurements Intervals [place] Rate: 77 P: 65 NV: 249 QRS: -12 QRSD: 92 T: 36 QT: 371 QTc: 403 Interpretive Statements SINUS RHYTHM WITH FIRST DEGREE AV BLOCK Electronically Signed On 11-28-2017 16:38:10 EDT by Nixon Estrella
[2017-11-29 06:18] LABS: Basophils % 0.6 %; Eosinophils # 0.3 K/mcL (0.0-0.6); Eosinophils % 5.6 %; Hematocrit 41.8 % (37.5-50.1); Hemoglobin 14.2 g/dL (12.9-16.9); Immature Granulocytes % 0.2 % (0-4); Lymphocytes % 20.6 %; Mean Corpuscular Hemoglobin 32.3 pg (28.0-33.3); Mean Platelet Volume 10.8 fL (9.4-12.4); Monocytes # 0.6 K/mcL (0.0-1.3); Monocytes % 12.9 %; Neutrophils # 2.9 K/mcL (1.6-8.9); Platelet Count 218 K/mcL (140-400); Red Cell Distribution Width 13.5 % (11.5-14.5); Segmented Neutrophils % 60.1 %
[2017-11-29] MEDS: Lactobacillus 1 EACH CAP.SPRINK PO SCH ×2 (10:00→20:25)
[2017-11-29] MEDS: Aspirin 81 MG TAB.CHEW PO SCH (10:00)
[2017-11-29] MEDS: Metoprolol XL (24 HR) Succ 25 MG TAB.ER.24H PO SCH (10:01)
[2017-11-29] MEDS: INCRUSE ELIPTA IH SCH (10:02)
[2017-11-29] MEDS: Budesonide/Formoterol 160/4.5 MDI IH SCH ×2 (10:24→20:25)
--- NOTE | 2017-11-29 12:24 | Internal Med Progress Note ---
Date of Encounter: 11/29/17 Time of Encounter: 12:10 - Assessment and plan (1) COPD exacerbation Current Visit: No Status: Acute Assessment and plan: November 29. WBC is normal and no left shift present. Will not prescribe further antibiotics. (2) Seizures Current Visit: No Status: Chronic Assessment and plan: November 29. Continue Dilantin. (3) Hypothyroidism Current Visit: No Status: Acute Assessment and plan: November 29. Continue Synthroid Qualifiers: Hypothyroidism type: unspecified Qualified Code(s): E03.9 - Hypothyroidism , unspecified - Subjective Interval history: November 29. He has no new complaints. He states his dyspnea has improved. - Constitutional Vitals: Temp Pulse Resp BP Pulse Ox 98.6 F 69 14 138/67 94 11/29/17 10:00 11/29/17 10:00 11/29/17 10:24 11/29/17 10:00 11/29/17 10:24 Exam: He is sitting on the side of bed eating lunch and appears in no acute distress. His affect is bright and cheerful. I reviewed his medications and lab results. Internal Medicine: Result - Labs CBC & Chem 7: 11/29/17 06:04 11/28/17 05:16 Labs: Short CBC 11/29/17 Range/Units 06:04 WBC 4.8 (4.3-11.1) K/mcL Hgb 14.2 (12.9-16.9) g/dL Hct 41.8 (37.5-50.1) % Plt Count 218 (140-400) K/mcL Neutrophils # 2.9 (1.6-8.9) K/mcL Consult Discharge Plan - Plan Referrals: Dex Hutton DO [Primary Care Provider] - 1 week
[2017-11-30] MEDS: *HR* Enoxaparin 40 MG/0.4 ML SYRINGE SQ SCH (06:40)
[2017-11-30] MEDS: Lactobacillus 1 EACH CAP.SPRINK PO SCH ×2 (07:45→21:09)
[2017-11-30] MEDS: Aspirin 81 MG TAB.CHEW PO SCH (07:45)
[2017-11-30] MEDS: Metoprolol XL (24 HR) Succ 25 MG TAB.ER.24H PO SCH (07:45)
[2017-11-30] MEDS: Budesonide/Formoterol 160/4.5 MDI IH SCH ×2 (11:00→22:41)
--- NOTE | 2017-11-30 18:12 | Internal Med Progress Note ---
Date of Encounter: 11/30/17 Time of Encounter: 18:05 - Assessment and plan (1) COPD exacerbation Current Visit: No Status: Acute Assessment and plan: November 29. WBC is normal and no left shift present. Will not prescribe further antibiotics. November 30. Continue present regimen. Awaiting insurance approval for SNF placement. (2) Seizures Current Visit: No Status: Chronic Assessment and plan: November 29. Continue Dilantin. (3) Hypothyroidism Current Visit: No Status: Acute Assessment and plan: November 29. Continue Synthroid Qualifiers: Hypothyroidism type: unspecified Qualified Code(s): E03.9 - Hypothyroidism , unspecified - Subjective Interval history: November 29. He has no new complaints. He states his dyspnea has improved. November 30. He has no new complaints - Constitutional Vitals: Temp Pulse Resp BP Pulse Ox 97.9 F 78 18 108/74 96 11/30/17 15:48 11/30/17 15:48 11/30/17 15:48 11/30/17 15:48 11/30/17 15:48 Exam: He is sitting on the side of bed resting comfortably. His affect is bright and cheerful. I reviewed his medications and lab results. Internal Medicine: Result - Labs CBC & Chem 7: 11/29/17 06:04 11/28/17 05:16 Consult Discharge Plan - Plan Referrals: Dex Hutton DO [Primary Care Provider] - 1 week
[2017-11-30] MEDS: INCRUSE ELIPTA IH SCH (22:40)
[2017-12-01] MEDS: *HR* Enoxaparin 40 MG/0.4 ML SYRINGE SQ SCH (05:52)
[2017-12-01] MEDS: Lactobacillus 1 EACH CAP.SPRINK PO SCH ×2 (08:21→20:50)
[2017-12-01] MEDS: Aspirin 81 MG TAB.CHEW PO SCH (08:22)
[2017-12-01] MEDS: Metoprolol XL (24 HR) Succ 25 MG TAB.ER.24H PO SCH (08:22)
[2017-12-01] MEDS: Budesonide/Formoterol 160/4.5 MDI IH SCH ×2 (10:37→21:35)
[2017-12-01] MEDS: INCRUSE ELIPTA IH SCH (10:38)
--- NOTE | 2017-12-01 15:04 | Internal Med Progress Note ---
Date of Encounter: 12/01/17 Time of Encounter: 14:58 - Assessment and plan (1) COPD exacerbation Current Visit: No Status: Acute Assessment and plan: November 29. WBC is normal and no left shift present. Will not prescribe further antibiotics. November 30. Continue present regimen. Awaiting insurance approval for SNF placement. (2) Seizures Current Visit: No Status: Chronic Assessment and plan: November 29. Continue Dilantin. (3) Hypothyroidism Current Visit: No Status: Acute Assessment and plan: November 29. Continue Synthroid Qualifiers: Hypothyroidism type: unspecified Qualified Code(s): E03.9 - Hypothyroidism , unspecified - Subjective Interval history: November 29. He has no new complaints. He states his dyspnea has improved. November 30. He has no new complaints December 01. He has no new complaints - Constitutional Vitals: Temp Pulse Resp BP Pulse Ox 97.9 F 72 16 103/64 93 12/01/17 10:27 12/01/17 10:27 12/01/17 10:38 12/01/17 10:27 12/01/17 10:38 Exam: He is sitting on the side of bed resting comfortably. He is wearing oxygen by nasal cannula. His affect is bright and cheerful. I reviewed his medications and lab results. Internal Medicine: Result - Labs CBC & Chem 7: 11/29/17 06:04 11/28/17 05:16 Consult Discharge Plan - Plan Referrals: Dex Hutton DO [Primary Care Provider] - 1 week
[2017-12-02] MEDS: *HR* Enoxaparin 40 MG/0.4 ML SYRINGE SQ SCH (05:28)
[2017-12-02] MEDS: Lactobacillus 1 EACH CAP.SPRINK PO SCH ×2 (08:12→20:41)
[2017-12-02] MEDS: Aspirin 81 MG TAB.CHEW PO SCH (08:12)
[2017-12-02] MEDS: Metoprolol XL (24 HR) Succ 25 MG TAB.ER.24H PO SCH (08:13)
[2017-12-02] MEDS: Budesonide/Formoterol 160/4.5 MDI IH SCH ×2 (09:13→21:03)
[2017-12-02] MEDS: INCRUSE ELIPTA IH SCH (09:15)
--- NOTE | 2017-12-02 19:47 | Internal Med Progress Note ---
Date of Encounter: 12/02/17 Time of Encounter: 19:35 - Assessment and plan (1) COPD exacerbation Current Visit: No Status: Acute Assessment and plan: November 29. WBC is normal and no left shift present. Will not prescribe further antibiotics. November 30. Continue present regimen. Awaiting insurance approval for SNF placement. December 02. Will attempt to verify home safety in a.m. and possibly discharge home instead of SNF placement. (2) Seizures Current Visit: No Status: Chronic Assessment and plan: November 29. Continue Dilantin. (3) Hypothyroidism Current Visit: No Status: Acute Assessment and plan: November 29. Continue Synthroid Qualifiers: Hypothyroidism type: unspecified Qualified Code(s): E03.9 - Hypothyroidism , unspecified - Subjective Interval history: November 29. He has no new complaints. He states his dyspnea has improved. November 30. He has no new complaints December 01. He has no new complaints December 02. He has no new complaints. He states he wishes to go home. He reports the fuel oil line that was leaking has been removed from his home and new lines are being placed for a propane heat system. - Constitutional Vitals: Temp Pulse Resp BP Pulse Ox 97.9 F 77 16 126/81 93 12/02/17 19:01 12/02/17 19:01 12/02/17 19:01 12/02/17 19:01 12/02/17 19:01 Exam: He is resting comfortably on the side of the bed and feels well. His affect is bright and cheerful. I reviewed his medications and past lab results. Internal Medicine: Result - Labs CBC & Chem 7: 11/29/17 06:04 11/28/17 05:16 Consult Discharge Plan - Plan Referrals: Dex Hutton DO [Primary Care Provider] - 1 week
[2017-12-03] MEDS: *HR* Enoxaparin 40 MG/0.4 ML SYRINGE SQ SCH (06:03)
[2017-12-03] MEDS: Aspirin 81 MG TAB.CHEW PO SCH (08:34)
[2017-12-03] MEDS: Lactobacillus 1 EACH CAP.SPRINK PO SCH (08:34)
[2017-12-03] MEDS: Metoprolol XL (24 HR) Succ 25 MG TAB.ER.24H PO SCH (08:34)
[2017-12-03] MEDS: Budesonide/Formoterol 160/4.5 MDI IH SCH (09:01)
[2017-12-03] MEDS: INCRUSE ELIPTA IH SCH (09:17)
[2017-12-03 11:06] VITALS: BP 120/79
--- NOTE | 2017-12-03 15:01 | Discharge Summary ---
Date of Encounter: 12/03/17 Time of Encounter: 14:50 - Discharge Diagnosis (1) COPD exacerbation Priority: Primary Status: Acute (2) Seizures Priority: Secondary Status: Chronic (3) Hypothyroidism Priority: Secondary Status: Acute Qualifiers: Hypothyroidism type: unspecified Qualified Code(s): E03.9 - Hypothyroidism , unspecified Hospital course: Mr. Vail is a 72 year old male who came to emergency room complaining of dyspnea onset 0300 today. He had been feeling weak and dizzy for a few hours previously. He took inhalers at home without relief. He was evaluated emergency room and felt to have exacerbation of COPD was admitted to [facility] for ongoing care needs. Initial orders were written by the emergency room physician. I saw him on November 28 and performed a history and physical. He was given doxycycline and Solu- Medrol in emergency room. Follow-up labs on November 29 showed no leukocytosis or left shift so antibiotics were not continued. He remained clinically stable. It was uncertain how long he would be unable to return to his home because of the fuel oil odor. Efforts were started for him to go to a local SNF until the issues regarding his house safety could be resolved. On December 03 I spoke with his landlord who told me that the fuel oil tank and lines had been removed and propane lines have been placed. New carpet had been laid and the house was ready for him to return home. He will be discharged home today and follow with his PCP Dr. Hutton within 1 week. - Time Spent with Patient Total time spent providing and/or coordinating discharge services: - Discharge Medications Home Medications: Aspirin 81 mg PO DAILY 03/02/15 [History] Budesonide/Formoterol 160/4.5 [Symbicort] 2 puff IH BIDR 03/02/15 [History] Levothyroxine [Synthroid] 150 mcg PO DAILY 03/02/15 [History] Phenytoin ER [Dilantin ER] 100 mg PO TID 03/02/15 [History] Montelukast [Singulair] 10 mg PO DAILY #30 tablet 06/22/15 [Rx] Umeclidinium [place] [Incruse Ellipta] 1 puff IH DAILY 05/25/17 [History] Metoprolol XL (24 HR) Succ [Toprol Xl] 25 mg PO DAILY #30 tab.er.24h 07/31/17 [ Rx] Albuterol Sulfate [Ventolin Hfa] 2 puff IH Q6H PRN 08/20/17 [History] Lactobacillus [Culturelle] 1 each PO BID #6 cap.sprink 10/25/17 [Rx] Budesonide/Formoterol 160/4.5 [Symbicort 160/4.5] 2 puff IH BIDR #1 inhaler [Rx] Allergies/Adverse Reactions: 3 Allergy/AdvReac Type Severity Reaction Status Date / Time No Known Allergies Allergy Verified 11/28/17 05:51 Date of admission: 11/29/17 19:16 Primary care physician: Dex Hutton DO - Constitutional Vitals: Temp Pulse Resp BP Pulse Ox 97.6 F 67 20 120/79 96 12/03/17 11:04 12/03/17 11:04 12/03/17 11:04 12/03/17 11:04 12/03/17 11:04 - Patient Status Disposition: Home Health Service Condition: Good Overall status at discharge: patient is progressing back to baseline - Discharge Instructions Follow Up With: Dex Hutton DO [Primary Care Provider] - 1 week - Diet and Activity Activity: resume usual activities as tolerated, wear oxygen at all times Diet: advance to your usual diet
== END 2017-12-03 16:03 | disposition home health service (06) | DRG 192 ==
LOC: EMEROOPIK 05:12 → INPPIK 05:12
PROVIDERS: ADMIT Internal Medicine; ATTEND Internal Medicine

== ENCOUNTER 2018-02-19 01:38 | Observation (INO) ==
[2018-02-19] MEDS ORDERED: methylPREDNISolone 125 MG/2 ML VIAL IVP ONE (01:51)
[2018-02-19] MEDS ORDERED: Ipratropium/Albuterol Neb 3 ML IH ONE (01:51)
--- NOTE | 2018-02-19 01:54 | Emergency Department Note ---
Disposition Clinical Impression: Acute exacerbation of chronic obstructive airways disease Disposition: Admitted As Inpatient Condition: Fair Time of Disposition: 02:59 ([facility]) SOB HPI - General Chief Complaint: ED Shortness of Breath/Dyspnea Stated Complaint: Dyspnea onset 2 hours Time Seen by Provider: 02/19/18 01:40 Source: patient, EMS Mode of arrival: ambulatory Limitations: no limitations Nursing Notes Reviewed: Yes Vital Signs Reviewed: Yes - History of Present Illness Pt Subjective Complaint: shortness of breath Onset (ago): day(s) Context: medication noncompliance Severity: moderate Consistency/Duration: gradually worsening Improves with: oxygen, rest, bronchodilators Worsens with: exertion, medication, movement Known history of: COPD Associated symptoms: Reports: cough, wheezing, sputum production. Denies: chest pain, pain with inspiration, fever, orthopnea, lower extremity pain, polyuria, polydipsia, parasthesias, palpitations, hemoptysis, diaphoresis, nausea/vomiting, syncope, abdominal pain, sense of impending doom Treatment prior to arrival: bronchodilator Cough present: Yes Cough Description: Involuntary, Non-Productive Cough Frequency: Intermittent Sputum production: Yes Sputum Amount: Scant Sputum Color: Yellow - Related Data Home Medications Medication Instructions Recorded Confirmed Aspirin 81 mg PO DAILY 03/02/15 01/02/18 Levothyroxine [Synthroid] 150 mcg PO DAILY 03/02/15 01/02/18 Phenytoin ER [Dilantin ER] 100 mg PO TID 03/02/15 01/02/18 Umeclidinium [place] [Incruse 1 puff IH DAILY 05/25/17 01/02/18 Ellipta] Albuterol Sulfate [Ventolin Hfa] 2 puff IH Q6H PRN 08/20/17 01/02/18 Previous Rx's Medication Instructions Recorded Montelukast [Singulair] 10 mg PO DAILY #30 tablet 06/22/15 Metoprolol XL (24 HR) Succ [Toprol 25 mg PO DAILY #30 tab.er.24h 07/31/17 Xl] Budesonide/Formoterol 160/4.5 2 puff IH BIDR #1 inhaler 11/08/17 [Symbicort 160/4.5] Allergies Allergy/AdvReac Type Severity Reaction Status Date / Time No Known Allergies Allergy Verified 11/28/17 05:51 All systems ED: reviewed and negative except as stated. Review of Systems: As Per HPI Constitutional: Reports: weakness. Denies: fever, chills Eyes: Denies: eye pain, eye discharge ENT ED: Denies: ear pain, throat pain Cardiovascular: Denies: chest pain, paroxysmal nocturnal dyspnea Respiratory: Reports: cough. Denies: dyspnea, wheezes Gastrointestinal: Reports: nausea. Denies: abdominal pain, vomiting Genitourinary: Denies: urgency Musculoskeletal: Denies: back pain, neck pain Integumentary: Denies: rash, abrasion, lesions Neurological: Reports: weakness. Denies: headache Psychiatric: Denies: anxiety, depression Endocrine: Denies: fatigue, heat or cold intolerance Hematological/Lymphatic: Denies: easy bleeding Allergic/Immunologic: Denies: facial swelling Past Medical History - Past Medical History Attestation: Yes The following information was validated with the patient. Source: patient, old records reviewed, nursing notes reviewed Medical history: Reports: asthma, cancer, COPD, hyperlipidemia, hypertension, seizures, thyroid disease, syncope, other Surgical history: Reports: colectomy Psychiatric history: Reports: no psych history - Social History Smoking Status: Former smoker Smokeless Tobacco Status: No Alcohol use: Reports: none Drug use: Reports: none Physical Exam - General Limitations: no limitations General appearance: alert, in no apparent distress, anxious - Head Head exam: atraumatic, normocephalic, normal inspection - Eye Eye exam: Present: normal appearance, PERRL, EOMI - ENT ENT exam: normal exam, normal oropharynx, mucous membranes moist - Neck Neck exam: Present: normal inspection, full ROM, trachea midline - Chest Chest inspection: Present: normal inspection, symmetric chest wall rise - Respiratory Respiratory exam: Present: normal lung sounds bilaterally, respiratory distress , wheezes, prolonged expiratory phase - Cardiovascular Cardiovascular exam: Present: regular rate, normal rhythm, normal heart sounds - Abdominal Exam Abdominal exam: Present: soft, Non-Tender, normal bowel sounds - Extremities Exam Extremities exam: Present: normal inspection, full ROM, normal capillary refill. Absent: tenderness, pedal edema, joint swelling, calf tenderness - Expanded Upper Extremity Exam Shoulder exam: Present: normal inspection, full ROM Arm exam: Present: normal inspection, full ROM Elbow exam: Present: normal inspection, full ROM Forearm/Wrist exam: Present: normal inspection, full ROM Hand exam: Present: normal inspection, full ROM Neurosensory exam: Normal: radial nerve, ulnar nerve, median nerve Vascular exam: Normal: capillary refill, radial pulse - Expanded Lower Extremity Exam Hip/Pelvis exam: Present: normal inspection, full ROM Upper leg exam: Present: normal inspection, full ROM Knee exam: Present: normal inspection, full ROM Lower leg exam: Present: normal inspection, full ROM Ankle exam: Present: normal inspection, full ROM Foot/toe exam: Present: normal inspection, full ROM Neurovascular/Tendon exam: Absent: motor deficit, sensory deficit, tendon deficit Gait: other (Patient week with movement about the bed appears more anxious than any true respiratory) - Back Exam Back exam: Present: normal inspection, full ROM. Absent: muscle spasm - Neurological Exam Neurological exam: Present: alert, oriented X3, CN II-XII intact, normal gait - Psychiatric Psychiatric exam: Present: normal affect, agitated, anxious - Skin Skin exam: Present: warm, dry, intact, normal color Course Course Narrative: Patient was seen and evaluated laboratory data was done chest x-rays obtained with completion of these results patient appears to have an underlying COPD and significant respiratory distress comfort as result patient was admitted transfer [facility] stable his note patient has been in the emergency room frequently over the past 6-8 weeks and receiving treatments and so I did speak with patient he didn't think that he was was a slightly improved patient was then discharged to [facility] stable Vital Signs O2 Sat by Pulse Oximetry 3 02/19/18 01:40 Temperature 97.7 F 02/19/18 01:41 Pulse Rate 95 02/19/18 01:41 Respiratory Rate 22 02/19/18 01:41 Blood Pressure 133/84 02/19/18 01:41 O2 Sat by Pulse Oximetry 90 02/19/18 01:41 Oxygen Delivery Oxygen Delivery Nasal Cannula Shortness of Breath/Dyspnea - Differential Diagnosis Likely: acute exacerbation of chronic obstructive airways disease - Medical Records Medical records reviewed: Yes I reviewed the patient's medical records. - Lab Data Lab results reviewed: Yes I reviewed the patient's lab results. - Radiology Data Radiology results reviewed: Yes I reviewed the patient's radiology results. ITS Impressions Chest X-Ray 02/19/18 01:50 IMPRESSION: Bibasilar atelectasis/scarring. D/ / Romy Mcgrath MD / Romy Mcgrath MD Interpreting Provider: Romy Mcgrath MD Critical Care Time Critical Care Time: No
[2018-02-19 02:13] LABS: Basophils # 0.1 K/mcL (0.0-0.2); Basophils % 0.9 %; Eosinophils # 0.6 K/mcL (0.0-0.6); Eosinophils % 11.4 %; Hematocrit 41.8 % (37.5-50.1); Immature Granulocytes % 0.2 % (0-4); Lymphocytes # 0.8 K/mcL (0.6-4.6); Lymphocytes % 13.6 %; Mean Corpuscular HGB Conc 33.5 g/dL (31.6-35.5); Mean Corpuscular Hemoglobin 32.3 pg (28.0-33.3); Mean Corpuscular Volume 96.5 fL (83.0-100.0); Mean Platelet Volume 10.7 fL (9.4-12.4); Monocytes # 0.5 K/mcL (0.0-1.3); Monocytes % 8.2 %; Neutrophils # 3.6 K/mcL (1.6-8.9); Platelet Count 194 K/mcL (140-400); Red Blood Count 4.33 M/mcL (4.19-5.50); Red Cell Distribution Width 13.5 % (11.5-14.5); Segmented Neutrophils % 65.7 %
[2018-02-19 02:21] LABS: INR 1.1; Prothrombin Time 12.3 Seconds (9.4-12.1)
[2018-02-19 02:32] LABS: Alanine Aminotransferase 26 Units/L (7-52); Albumin 4.6 g/dL (3.5-5.7); Albumin/Globulin Ratio 1.8 (1.1-2.2); Alkaline Phosphatase 68 Units/L (34-104); Aspartate Amino Transferase 19 Units/L (13-39); BUN/Creatinine Ratio 19 (6-26); Bilirubin,Total 0.4 mg/dL (0.3-1.0); Blood Urea Nitrogen 18 mg/dL (8-23); Calcium 9.2 mg/dL (8.6-10.3); Carbon Dioxide 27 mEq/L (23-29); Chloride 103 mEq/L (98-107); Globulin 2.5 g/dL (2.4-3.5); Glucose 111 mg/dL (70-105); Osmolality,Calculated 289 (280-300); Sodium 138 mEq/L (136-145); Total Protein 7.1 g/dL (6.4-8.9); eGFR For Non-African Americans > 60 (> 60)
[2018-02-19] MEDS ORDERED: Naloxone 0.4 MG/ML INJ IVP PRN (03:21)
[2018-02-19] MEDS ORDERED: Albuterol 2.5 MG/3 ML NEBULIZER IH PRN (03:21)
[2018-02-19] MEDS: Ipratropium/Albuterol Neb 3 ML IH SCH ×4 (05:53→22:24)
[2018-02-19] MEDS: MethylPREDNISolone 40 MG/ML VIAL IVP SCH ×2 (07:02→11:23)
[2018-02-19] MEDS: Metoprolol XL (24 HR) Succ 25 MG TAB.ER.24H PO SCH (08:09)
[2018-02-19] MEDS: levoFLOXacin 500 MG TABLET PO SCH (08:09)
[2018-02-19] MEDS: Aspirin 81 MG TAB.CHEW PO SCH (08:09)
[2018-02-19] MEDS: INCRUSE ELLIPTA IH SCH (09:17)
[2018-02-19] MEDS: Budesonide/Formoterol 160/4.5 1 PUFF INH IH SCH ×2 (10:18→22:24)
--- NOTE | 2018-02-19 16:49 | Internal Med History&Physical ---
Date of Encounter: 02/19/18 Time of Encounter: 16:30 Assessment and Plan (1) Dyspnea Current visit: Yes Status: Acute Suspect multifactorial etiology including exacerbation of COPD and diastolic heart failure. Will order BN peptide. He has been started on Levaquin. Will add lactobacillus. Qualifiers: Dyspnea type: shortness of breath Qualified Code(s): R06.02 - Shortness of breath; R06.00 - Dyspnea, unspecified; R06.01 - Orthopnea (2) Hypoxemia Current visit: No Status: Acute Continue O2 16/01. (3) Acute exacerbation of chronic obstructive airways disease Current visit: Yes Status: Acute As above (4) Diastolic heart failure Current visit: Yes Status: Chronic As above Qualifiers: Heart failure chronicity: chronic Qualified Code(s): I50.32 - Chronic diastolic (congestive) heart failure (5) Seizures Current visit: No Status: Chronic Continue Dilantin. Internal Medicine - H&P: HPI Chief complaint: Dyspnea Admitted From: Emergency Dept Plans for Post Hospital Care: Home History of present illness: Mr. Vail is a 72 year old male who came to emergency room stating he awakened at 0100 with dyspnea. He denies pain or cough. He took additional nebulizer treatments at home without relief. He was evaluated in emergency room and felt to have exacerbation of COPD. He was admitted to [facility] floor for ongoing care needs. He was discharged from [facility] 12/03/2017 following admission for exacerbation of COPD. He has been hospitalized in any times at [facility] in the past few years with similar complaints. He smoked from age [age] up 2 packs per day. He has a diagnosis of COPD and wears oxygen at home 16/01. He denies irruption of medications. Past Med Surg Social Fam HX - Past Medical History Medical history: asthma, cancer, COPD, hyperlipidemia, hypertension, seizures, thyroid disease, syncope, other Additional medical history: [place], (HAS NO HEARING AIDS), HAS NO TEETH( NO DENTURES) GETS MEALS ON WHEELS( EATS SOFT FOODS), NO REPORT OF SHINGLES VACCINATION, WEARS HOME 02 AT 3LPM VIA [place], (LIVES AT HOME ALONE), LARGE ABD HERNIA Psychiatric history: no psych history - Past Surgical History Surgical History: colectomy Additional surgical history: Right ankle surgery when "in high school." - Social History Smoking Status: Former smoker Smokeless Tobacco Status: No Alcohol use: none Drug use: none - Family History Mother Adopted: No Family Member Ethnicity: Non- Living Status: Hx Family Cardiac Disorders: No Hx Family Respiratory Disorders: Yes (TB, treated) Hx Family Cancer: No Hx Family GI Disorders: No Hx Family Endocrine Disorder: No Hx Family Neuromuscular Disorders: No Hx Family Neurologic Disorders: No Hx Family HEENT Disorders: No Hx Family Autoimmune Disorders: No Father Adopted: No Family Member Ethnicity: Non- Living Status: Hx Family Cardiac Disorders: No Hx Family Respiratory Disorders: No Hx Family Cancer: No Hx Family GI Disorders: No Hx Family Endocrine Disorder: No Hx Family Neuromuscular Disorders: No Hx Family Neurologic Disorders: No Hx Family HEENT Disorders: No Hx Family Autoimmune Disorders: No Internal Medicine - H&P: Meds Aspirin 81 mg PO DAILY 03/02/15 [History] Levothyroxine [Synthroid] 150 mcg PO DAILY 03/02/15 [History] Phenytoin ER [Dilantin ER] 100 mg PO TID 03/02/15 [History] Montelukast [Singulair] 10 mg PO DAILY #30 tablet 06/22/15 [Rx] Umeclidinium [place] [Incruse Ellipta] 1 puff IH DAILY 05/25/17 [History] Metoprolol XL (24 HR) Succ [Toprol Xl] 25 mg PO DAILY #30 tab.er.24h 07/31/17 [ Rx] Albuterol Sulfate [Ventolin Hfa] 2 puff IH Q6H PRN 08/20/17 [History] Budesonide/Formoterol 160/4.5 [Symbicort 160/4.5] 2 puff IH BIDR #1 inhaler [Rx] 3 Allergy/AdvReac Type Severity Reaction Status Date / Time No Known Allergies Allergy Verified 11/28/17 05:51 All Systems PM: A 10-system review of systems was performed and is negative for pertinent findings except as documented above in the HPI. Review of systems: Review of systems from his November 2017 [facility] hospitalization were reviewed and revised as below. Gen.: His weight has increased slightly from 91.99 kg on 07/12/2015 to 94.801 kg now Cardiovascular: He has no known hypertension heart failure angina DVT pulmonary embolus or IL. He had a heart catheter January 2014 which showed 30% lesion in the mid LAD and normal LVEF at 65%. Echocardiogram 01/17/2018 showed LVEF of 50 % with mild LV diastolic dysfunction with E/A ratio of 0.5. There was mild tricuspid regurgitation. Respiratory: As per history of present illness GI: He had sigmoidectomy with primary anastomosis 07/2013 for colon cancer. He developed a ventral abdominal hernia postoperatively and is now using an elastic abdominal binder. He is presumed cancer free. Abdominal CT 12/30/2017 showed no evidence of strangulation. He has a liver lesion approximately 3.8 cm maximum diameter seen on CT scan that has been stable and is felt to be benign. He had repeat colonoscopy 05/25/2017 at [facility] which did not show significant pathology. He denies other disorders of his liver gallbladder or exocrine pancreas. : No history of hematuria dysuria or kidney stones. Neurologic: No history of large distribution strokes. He claims he had seizures from childhood but has not had recurrent seizures for several years while using Dilantin. Endocrine: He has hypothyroidism and history of hyperlipidemia but no known diabetes Hematology/oncology: He had colon cancer as per above. He has had no other malignancies or anemia. Psychiatric: He had no anxiety depression or other mental health issues Musk skeletal: He has no known gout arthritis or osteoporosis. - Constitutional Vitals: Temp Pulse Resp BP Pulse Ox 98.5 F 86 16 116/77 91 02/19/18 15:11 02/19/18 15:11 02/19/18 15:11 02/19/18 15:11 02/19/18 15:11 Exam: Gen.: He is a well-developed well-nourished male resting comfortably in bed who appears in no acute distress. HEENT: Head is atraumatic and normocephalic. Eyes: EOMI. There is no scleral icterus. Mouth: Mucosa is moist. Neck: Supple and nontender. There is no thyromegaly or adenopathy noted. Heart: Regular without murmurs gallops or ectopics. Lungs: He has diminished breath sounds diffusely. No wheezes or crackles are heard. Abdomen: He has a ventral hernia and is wearing an abdominal binder. The abdomen is nontender to palpation. Extremities: There is no cyanosis edema or clubbing noted. Dorsalis pedis and posttibial pulses are trace to 1+ palpable bilaterally. 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 He has chronic venous stasis pigmentation changes. Neurologic: Mental status: He is talkative and a good historian. Cranial nerves : Smile is symmetric. Forehead wrinkles bilaterally. Tongue protrudes midline. EOMI. Motor: There is no pronator drift. Cerebellar: Finger to nose is intact bilaterally. Skin: Warm and dry Internal Med - H&P Results - Labs CBC & Chem 7: 02/19/18 02:05 02/19/18 02:05
[2018-02-19] MEDS: predniSONE 10 MG TABLET PO SCH (17:52)
[2018-02-19] MEDS: Lactobacillus 1 EACH CAP.SPRINK PO SCH (20:53)
[2018-02-20] MEDS: Ipratropium/Albuterol Neb 3 ML IH SCH ×2 (04:35→10:37)
[2018-02-20 06:35] LABS: Basophils % 0.3 %; Eosinophils % 0.3 %; Hematocrit 36.8 % (37.5-50.1); Hemoglobin 12.6 g/dL (12.9-16.9); Immature Granulocytes % 0.4 % (0-4); Lymphocytes # 1.1 K/mcL (0.6-4.6); Lymphocytes % 16.4 %; Mean Corpuscular HGB Conc 34.2 g/dL (31.6-35.5); Mean Corpuscular Hemoglobin 32.5 pg (28.0-33.3); Mean Corpuscular Volume 94.8 fL (83.0-100.0); Mean Platelet Volume 10.8 fL (9.4-12.4); Monocytes # 0.7 K/mcL (0.0-1.3); Monocytes % 10.5 %; Neutrophils # 4.8 K/mcL (1.6-8.9); Platelet Count 183 K/mcL (140-400); Red Blood Count 3.88 M/mcL (4.19-5.50); Red Cell Distribution Width 13.4 % (11.5-14.5); Segmented Neutrophils % 72.1 %
[2018-02-20] MEDS: Aspirin 81 MG TAB.CHEW PO SCH (08:15)
[2018-02-20] MEDS: Metoprolol XL (24 HR) Succ 25 MG TAB.ER.24H PO SCH (08:15)
[2018-02-20] MEDS: predniSONE 10 MG TABLET PO SCH (08:15)
[2018-02-20] MEDS: INCRUSE ELLIPTA IH SCH (08:16)
[2018-02-20] MEDS: Lactobacillus 1 EACH CAP.SPRINK PO SCH (08:16)
[2018-02-20] MEDS: levoFLOXacin 500 MG TABLET PO SCH (08:16)
[2018-02-20 10:26] VITALS: BP 94/55
[2018-02-20] MEDS: Budesonide/Formoterol 160/4.5 1 PUFF INH IH SCH (10:37)
--- NOTE | 2018-02-20 11:11 | Discharge Summary ---
Date of Encounter: 02/20/18 Time of Encounter: 11:00 - Discharge Diagnosis (1) Acute exacerbation of chronic obstructive airways disease Priority: Primary Status: Acute (2) Hypoxemia Priority: Secondary Status: Chronic (3) Diastolic heart failure Priority: Secondary Status: Chronic Qualifiers: Heart failure chronicity: chronic Qualified Code(s): I50.32 - Chronic diastolic (congestive) heart failure (4) Seizures Priority: Secondary Status: Chronic Hospital course: Mr. Vail is a 72 year old male who came to emergency room stating he awakened at 0100 with dyspnea. He denies pain or cough. He took additional nebulizer treatments at home without relief. He was evaluated in emergency room and felt to have exacerbation of COPD. He was admitted to [facility] floor for ongoing care needs. Initial orders were written by emergency room physician. I saw him on February 19 and performed the history and physical. He was started on Levaquin with lactobacillus. Oxygen was continued as at home. His dyspnea was improved when I saw him on February 20 and he felt stable for discharge home. BN peptide and return minimally elevated at 167. I will let his PCP determine if additional medication for diastolic heart failure should be given. He will be discharged home and follow with his PCP Dr. Hutton within 1 week. He will continue with antibiotic, probiotic, and prednisone for 2 additional days at discharge. - Time Spent with Patient Total time spent providing and/or coordinating discharge services: - Discharge Medications Prescriptions: Lactobacillus [Culturelle] 1 each PO BID #4 cap.sprink levoFLOXacin [Levaquin] 500 mg PO DAILY #2 tablet predniSONE [PredniSONE] 10 mg PO BIDWM #4 tablet Home Medications: Aspirin 81 mg PO DAILY 03/02/15 [History] Levothyroxine [Synthroid] 150 mcg PO DAILY 03/02/15 [History] Phenytoin ER [Dilantin ER] 100 mg PO TID 03/02/15 [History] Montelukast [Singulair] 10 mg PO DAILY #30 tablet 06/22/15 [Rx] Umeclidinium [place] [Incruse Ellipta] 1 puff IH DAILY 05/25/17 [History] Metoprolol XL (24 HR) Succ [Toprol Xl] 25 mg PO DAILY #30 tab.er.24h 07/31/17 [ Rx] Albuterol Sulfate [Ventolin Hfa] 2 puff IH Q6H PRN 08/20/17 [History] Budesonide/Formoterol 160/4.5 [Symbicort 160/4.5] 2 puff IH BIDR #1 inhaler [Rx] Lactobacillus [Culturelle] 1 each PO BID #4 cap.sprink 02/20/18 [Rx] levoFLOXacin [Levaquin] 500 mg PO DAILY #2 tablet 02/20/18 [Rx] predniSONE [PredniSONE] 10 mg PO BIDWM #4 tablet 02/20/18 [Rx] Allergies/Adverse Reactions: 3 Allergy/AdvReac Type Severity Reaction Status Date / Time No Known Allergies Allergy Verified 11/28/17 05:51 Date of admission: 02/19/18 02:59 Primary care physician: Dex Hutton DO - Constitutional Vitals: Temp Pulse Resp BP Pulse Ox 97.4 F L 74 14 94/55 99 02/20/18 10:24 02/20/18 10:24 02/20/18 10:39 02/20/18 10:24 02/20/18 10:39 - Patient Status Disposition: Home Health Service Condition: Fair - Discharge Instructions Follow Up With: Dex Hutton DO [Primary Care Provider] - 1 week - Diet and Activity Activity: resume usual activities as tolerated, wear oxygen at all times Diet: advance to your usual diet
--- NOTE | 2018-02-20 11:23 | Physician Discharge Referral ---
Home Health/Hosp Referral Info Transfer to: Home Health Attending Provider: Jackson Provider in Charge Post Discharge: PCP (Anni) - Diagnosis (1) Acute exacerbation of chronic obstructive airways disease Priority: Primary Status: Acute (2) Hypoxemia Priority: Secondary Status: Chronic (3) Diastolic heart failure Priority: Secondary Status: Chronic (4) Seizures Priority: Secondary Status: Chronic - Respiratory Orders Oxygen / L per min (Liters per minute by nasal cannula 24/7.) Smoking Cessation: Smoking cessation has been advised. For more information, call the [employer] Quit Line at 9-488-VDBK-NOW. - Diet/Nutrition Diet/Nutrition Orders: Cardiac - Activity Activity Orders: Ambulate - Services Needed Following services are medically necessary services: Nursing, Home Health Aide, Physical Therapy, Occupational Therapy - Transfer Medications Prescriptions: Lactobacillus [Culturelle] 1 each PO BID #4 cap.sprink levoFLOXacin [Levaquin] 500 mg PO DAILY #2 tablet predniSONE [PredniSONE] 10 mg PO BIDWM #4 tablet Home Medications: Aspirin 81 mg PO DAILY 03/02/15 [History] Levothyroxine [Synthroid] 150 mcg PO DAILY 03/02/15 [History] Phenytoin ER [Dilantin ER] 100 mg PO TID 03/02/15 [History] Montelukast [Singulair] 10 mg PO DAILY #30 tablet 06/22/15 [Rx] Umeclidinium [place] [Incruse Ellipta] 1 puff IH DAILY 05/25/17 [History] Metoprolol XL (24 HR) Succ [Toprol Xl] 25 mg PO DAILY #30 tab.er.24h 07/31/17 [ Rx] Albuterol Sulfate [Ventolin Hfa] 2 puff IH Q6H PRN 08/20/17 [History] Budesonide/Formoterol 160/4.5 [Symbicort 160/4.5] 2 puff IH BIDR #1 inhaler [Rx] Lactobacillus [Culturelle] 1 each PO BID #4 cap.sprink 02/20/18 [Rx] levoFLOXacin [Levaquin] 500 mg PO DAILY #2 tablet 02/20/18 [Rx] predniSONE [PredniSONE] 10 mg PO BIDWM #4 tablet 02/20/18 [Rx] Allergies/Adverse Reactions: 3 Allergy/AdvReac Type Severity Reaction Status Date / Time No Known Allergies Allergy Verified 11/28/17 05:51 Certification: Further, I certify that my clinical findings support that this patient is homebound (i.e. absences from home require considerable and taxing effort and are for medical reasons or oriental orthodox services or infrequently or short duration when for other reasons) because: Homebound Reason: Leaving home requires considerable and taxing effort due to condition (COPD with hypoxemia) Attestation: My signature below is to certify that this patient is under my care and that I, or nurse practitioner, or a physician's certified nursing assistant working with me, has a face-to -face encounter with this patient.
== END 2018-02-20 13:20 | disposition home health service (06) ==
LOC: EMEROOPIK 01:38 → INPPIK 01:38
PROVIDERS: ADMIT Internal Medicine; ATTEND Internal Medicine

== ENCOUNTER 2018-02-27 07:32 | Observation (INO) ==
--- NOTE | 2018-02-27 07:47 | Emergency Department Note ---
Disposition Clinical Impression: Acute exacerbation of chronic obstructive airways disease Disposition: Admitted As Inpatient Condition: Fair Referrals: Dex Hutton DO [Primary Care Provider] - Time of Disposition: 07:52 ([facility]) SOB HPI - General Chief Complaint: ED Shortness of Breath/Dyspnea Stated Complaint: SOB Time Seen by Provider: 02/27/18 07:45 Source: patient, EMS Mode of arrival: EMS Limitations: age Nursing Notes Reviewed: Yes Vital Signs Reviewed: Yes - History of Present Illness 72-year-old male seen last evening at approximately 2300 hours COPD exacerbation and was discharged at approximately 1:00 received one aerosol treatment did markedly better and then went home he went back to home where he is turned off the air conditioner because it makes him cold as result he woke up smothering this morning with no air conditioning on called EMS EMS arrived and gave him a treatment in route brought him into the ER and now he is clear patient states that he is just to keep coming back to the emergency room because he doesn't know what to do patient states he short of breath he can't have the air conditioner on because it makes him cold he states that he's had no fevers no chills he's had no lightheadedness he's had recurrent shortness of breath he's had cough he's had intermittent wheezing he said no abdominal pain or discomfort he states his appetite is good denies diarrhea melena hematochezia hematemesis patient reportedly has a home health nurse who comes out during the week it is noted though that if it is his charts are reviewed he is frequently coming in usually on a Monday night or Monday on a frequent basis here recently Pt Subjective Complaint: shortness of breath Onset (ago): Just [employer] Context: recent illness Severity: moderate Consistency/Duration: intermittent Improves with: nothing Worsens with: nothing Known history of: COPD Associated symptoms: Reports: wheezing, sputum production. Denies: chest pain, pain with inspiration, fever, cough, orthopnea, lower extremity pain, polyuria, polydipsia, parasthesias, palpitations, hemoptysis, diaphoresis, nausea/vomiting , syncope, abdominal pain, rash, sense of impending doom Treatment prior to arrival: oxygen (3L at home), bronchodilator (?) Cough present: No Sputum production: No - Related Data Home Medications Medication Instructions Recorded Confirmed Aspirin 81 mg PO DAILY 03/02/15 02/26/18 Levothyroxine [Synthroid] 150 mcg PO DAILY 03/02/15 02/26/18 Phenytoin ER [Dilantin ER] 100 mg PO TID 03/02/15 02/26/18 Umeclidinium [place] [Incruse 1 puff IH DAILY 05/25/17 02/26/18 Ellipta] Albuterol Sulfate [Ventolin Hfa] 2 puff IH Q6H PRN 08/20/17 02/26/18 Previous Rx's Medication Instructions Recorded Montelukast [Singulair] 10 mg PO DAILY #30 tablet 06/22/15 Metoprolol XL (24 HR) Succ [Toprol 25 mg PO DAILY #30 tab.er.24h 07/31/17 Xl] Budesonide/Formoterol 160/4.5 2 puff IH BIDR #1 inhaler 11/08/17 [Symbicort 160/4.5] Lactobacillus [Culturelle] 1 each PO BID #4 cap.sprink 02/20/18 levoFLOXacin [Levaquin] 500 mg PO DAILY #2 tablet 02/20/18 predniSONE [PredniSONE] 10 mg PO BIDWM #4 tablet 02/20/18 Allergies Allergy/AdvReac Type Severity Reaction Status Date / Time No Known Allergies Allergy Verified 02/26/18 23:11 All systems ED: reviewed and negative except as stated. Review of Systems: As Per HPI Constitutional: Denies: fever, chills, weakness Eyes: Denies: eye pain, eye discharge ENT ED: Denies: ear pain, throat pain Cardiovascular: Denies: chest pain, palpitations, dyspnea on exertion Respiratory: Reports: cough, dyspnea, wheezes Gastrointestinal: Denies: abdominal pain, nausea, vomiting Genitourinary: Denies: urgency, dysuria Musculoskeletal: Denies: back pain, neck pain Integumentary: Denies: rash, abrasion Neurological: Reports: weakness. Denies: headache, vertigo Psychiatric: Denies: anxiety Endocrine: Denies: fatigue Hematological/Lymphatic: Denies: easy bleeding Allergic/Immunologic: Denies: facial swelling Past Medical History - Past Medical History Medical history: Reports: asthma, cancer, COPD, hyperlipidemia, hypertension, seizures, thyroid disease, syncope, other Surgical history: Reports: colectomy Psychiatric history: Reports: no psych history - Social History Smoking Status: Former smoker Smokeless Tobacco Status: No Alcohol use: Reports: none Drug use: Reports: none Physical Exam - General Limitations: age General appearance: alert, in no apparent distress, anxious, other (At times appears to be slightly confused) - Head Head exam: atraumatic, normocephalic, normal inspection - Eye Eye exam: Present: normal appearance, PERRL, EOMI - ENT ENT exam: normal exam, normal oropharynx, mucous membranes moist, TM's normal bilaterally, normal external ear exam - Neck Neck exam: Present: normal inspection, full ROM, trachea midline - Chest Chest inspection: Present: normal inspection, symmetric chest wall rise, other ( Barrel chest appearance) - Respiratory Respiratory exam: Present: wheezes, prolonged expiratory phase. Absent: accessory muscle use - Cardiovascular Cardiovascular exam: Present: regular rate, normal rhythm, normal heart sounds - Abdominal Exam Abdominal exam: Present: soft, Non-Tender, normal bowel sounds. Absent: mass, pulsatile mass - Expanded Upper Extremity Exam Shoulder exam: Present: normal inspection, full ROM Arm exam: Present: normal inspection, full ROM Elbow exam: Present: normal inspection, full ROM Forearm/Wrist exam: Present: normal inspection, full ROM Hand exam: Present: normal inspection, full ROM Vascular exam: Normal: capillary refill, radial pulse - Expanded Lower Extremity Exam Hip/Pelvis exam: Present: normal inspection, full ROM Upper leg exam: Present: normal inspection, full ROM Knee exam: Present: normal inspection, full ROM Lower leg exam: Present: normal inspection, full ROM Ankle exam: Present: normal inspection, full ROM Foot/toe exam: Present: normal inspection, full ROM Neurovascular/Tendon exam: Present: normal capillary refill, normal fine/light touch. Absent: motor deficit, sensory deficit, tendon deficit Gait: observed and normal - Back Exam Back exam: Present: normal inspection, full ROM. Absent: muscle spasm - Neurological Exam Neurological exam: Present: alert, oriented X3, CN II-XII intact, normal gait - Psychiatric Psychiatric exam: Present: normal affect, normal mood, anxious - Skin Skin exam: Present: warm, dry, intact, normal color Course Course Narrative: Patient was re-seen and evaluated due to the fact that he is back within less than 12 hours I spoke with Dr. Paz were going to have him admitted have social media marketing manager meet with him and see about possibly placement in a nursing care facility as well as concerns are his adult protective services because the patient is showing evidence that he has clearly unable to care for himself he is fecally run in his family off and as result they have very little to do with him and he has his landlord which is the only one that does really anything for him as result will contact social media marketing manager for further evaluation Shortness of Breath/Dyspnea - Differential Diagnosis Likely: acute exacerbation of chronic obstructive airways disease - Medical Records Medical records reviewed: Yes I reviewed the patient's medical records. Critical Care Time Critical Care Time: No
[2018-02-27] MEDS ORDERED: methylPREDNISolone 125 MG/2 ML VIAL IVP ONE (07:53)
[2018-02-27 08:21] LABS: VBG Chloride 104 mEq/L (98-107); VBG Creatinine 0.82 mg/dL (0.72-1.25); VBG Glucose 113 mg/dl (65-95)
[2018-02-27 08:28] LABS: Basophils # 0.1 K/mcL (0.0-0.2); Basophils % 0.9 %; Eosinophils # 0.5 K/mcL (0.0-0.6); Eosinophils % 8.7 %; Hemoglobin 13.8 g/dL (12.9-16.9); Immature Granulocytes % 0.2 % (0-4); Lymphocytes # 0.6 K/mcL (0.6-4.6); Lymphocytes % 10.7 %; Mean Corpuscular HGB Conc 33.7 g/dL (31.6-35.5); Mean Corpuscular Hemoglobin 32.2 pg (28.0-33.3); Mean Corpuscular Volume 95.8 fL (83.0-100.0); Mean Platelet Volume 10.9 fL (9.4-12.4); Monocytes # 0.5 K/mcL (0.0-1.3); Monocytes % 9.4 %; Neutrophils # 3.9 K/mcL (1.6-8.9); Platelet Count 191 K/mcL (140-400); Red Blood Count 4.28 M/mcL (4.19-5.50); Red Cell Distribution Width 13.4 % (11.5-14.5); Segmented Neutrophils % 70.1 %
[2018-02-27 08:29] LABS: INR 1.1; Prothrombin Time 12.2 Seconds (9.4-12.1)
[2018-02-27] MEDS: 0.9 % Sodium Chloride 1,000 ML IVC SCH ×2 (08:45→17:05)
[2018-02-27 10:06] LABS: Alanine Aminotransferase 27 Units/L (7-52); Albumin 4.3 g/dL (3.5-5.7); Alkaline Phosphatase 60 Units/L (34-104); Aspartate Amino Transferase 18 Units/L (13-39); BUN/Creatinine Ratio 17 (6-26); Bilirubin,Total 0.3 mg/dL (0.3-1.0); Blood Urea Nitrogen 13 mg/dL (8-23); Calcium 9.2 mg/dL (8.6-10.3); Carbon Dioxide 30 mEq/L (23-29); Chloride 103 mEq/L (98-107); Globulin 2.2 g/dL (2.4-3.5); Glucose 115 mg/dL (70-105); Osmolality,Calculated 283 (280-300); Potassium 4.2 mEq/L (3.5-5.1); Sodium 136 mEq/L (136-145); Total Protein 6.5 g/dL (6.4-8.9); eGFR For Non-African Americans > 60 (> 60)
[2018-02-27] MEDS ORDERED: Albuterol 2.5 MG/3 ML NEBULIZER IH PRN (14:11)
[2018-02-27] MEDS ORDERED: Naloxone 0.4 MG/ML INJ IVP PRN (14:22)
[2018-02-27] MEDS ORDERED: Ipratropium/Albuterol Neb 3 ML IH SCH (17:00)
[2018-02-27] MEDS: MethylPREDNISolone 40 MG/ML VIAL IVP SCH (17:08)
--- NOTE | 2018-02-27 17:57 | Internal Med History&Physical ---
Date of Encounter: 02/27/18 Time of Encounter: 17:25 Assessment and Plan (1) Acute exacerbation of chronic obstructive airways disease Current visit: Yes Status: Acute He has been started on IV steroids. Symbicort and LAMA will be continued. (2) Seizures Current visit: No Status: Chronic Continue Dilantin (3) Hypoxemia Current visit: No Status: Chronic Continue oxygen 24/7. (4) Hypothyroidism Current visit: No Status: Acute TSH was normal at 2.82 on 10/24/2017. Continue present dose Synthroid. Qualifiers: Hypothyroidism type: unspecified Qualified Code(s): E03.9 - Hypothyroidism , unspecified (5) Diastolic heart failure Current visit: No Status: Chronic BN peptide was slightly elevated at 167. Start low-dose Bumex and isosorbide. Qualifiers: Heart failure chronicity: chronic Qualified Code(s): I50.32 - Chronic diastolic (congestive) heart failure Internal Medicine - H&P: HPI Chief complaint: Dyspnea Admitted From: Emergency Dept Plans for Post Hospital Care: Home History of present illness: Mr. Vail is a 72 year old male who returned to emergency room a few hours after ER discharge stating he had recurrent/unimproved dyspnea. He was reevaluated and admitted to [facility] floor with diagnosis of COPD. He was discharged from [facility] 02/20/2018 following admission for exacerbation of COPD. He has been hospitalized 5 previous times at [facility] in 2018 with similar complaints. He smoked from age [age] up 2 packs per day. He has a diagnosis of COPD and wears oxygen at home 24/7. Most recent chest CT was 11/07/2017 which showed 9 mm nodule in the lateral basal left lower lobe not significant change from July 2017 CT. There was a 4 mm right lower lobe nodule decreased from previous 6 mm size. Past Med Surg Social Fam HX - Past Medical History Medical history: asthma, cancer, COPD, hyperlipidemia, hypertension, seizures, thyroid disease, syncope, other Additional medical history: [place], (HAS NO HEARING AIDS), HAS NO TEETH( NO DENTURES) GETS MEALS ON WHEELS( EATS SOFT FOODS), NO REPORT OF SHINGLES VACCINATION, WEARS HOME 02 AT 3LPM VIA [place], (LIVES AT HOME ALONE), LARGE ABD HERNIA Psychiatric history: no psych history - Past Surgical History Surgical History: colectomy Additional surgical history: Right ankle surgery when "in high school." - Social History Smoking Status: Former smoker Smokeless Tobacco Status: No Alcohol use: none Drug use: none - Family History Mother Adopted: No Family Member Ethnicity: Non- Living Status: Hx Family Cardiac Disorders: No Hx Family Respiratory Disorders: Yes (TB, treated) Hx Family Cancer: No Hx Family GI Disorders: No Hx Family Endocrine Disorder: No Hx Family Neuromuscular Disorders: No Hx Family Neurologic Disorders: No Hx Family HEENT Disorders: No Hx Family Autoimmune Disorders: No Father Adopted: No Family Member Ethnicity: Non- Living Status: Hx Family Cardiac Disorders: No Hx Family Respiratory Disorders: No Hx Family Cancer: No Hx Family GI Disorders: No Hx Family Endocrine Disorder: No Hx Family Neuromuscular Disorders: No Hx Family Neurologic Disorders: No Hx Family HEENT Disorders: No Hx Family Autoimmune Disorders: No Internal Medicine - H&P: Meds Aspirin 81 mg PO DAILY 03/02/15 [History] Levothyroxine [Synthroid] 150 mcg PO DAILY 03/02/15 [History] Phenytoin ER [Dilantin ER] 100 mg PO TID 03/02/15 [History] Montelukast [Singulair] 10 mg PO DAILY #30 tablet 06/22/15 [Rx] Umeclidinium [place] [Incruse Ellipta] 1 puff IH DAILY 05/25/17 [History] Metoprolol XL (24 HR) Succ [Toprol Xl] 25 mg PO DAILY #30 tab.er.24h 07/31/17 [ Rx] Albuterol Sulfate [Ventolin Hfa] 2 puff IH Q6H PRN 08/20/17 [History] Budesonide/Formoterol 160/4.5 [Symbicort 160/4.5] 2 puff IH BIDR #1 inhaler [Rx] Lactobacillus [Culturelle] 1 each PO BID #4 cap.sprink 02/20/18 [Rx] levoFLOXacin [Levaquin] 500 mg PO DAILY #2 tablet 02/20/18 [Rx] predniSONE [PredniSONE] 10 mg PO BIDWM #4 tablet 02/20/18 [Rx] 3 Allergy/AdvReac Type Severity Reaction Status Date / Time No Known Allergies Allergy Verified 02/26/18 23:11 All Systems PM: A 10-system review of systems was performed and is negative for pertinent findings except as documented above in the HPI. Review of systems: Review of systems from his recent January 2018 [facility] hospitalization were reviewed and revised as below. Gen.: His weight has decreased slightly from 91.99 kg on 07/12/2015 to 86.183 kg now (if accurate) Cardiovascular: He has no known hypertension heart failure angina DVT pulmonary embolus or NV. He had a heart catheter January 2014 which showed 30% lesion in the mid LAD and normal LVEF at 65%. Echocardiogram 01/17/2018 showed LVEF of 50 % with mild LV diastolic dysfunction with E/A ratio of 0.5. There was mild tricuspid regurgitation. Respiratory: As per history of present illness GI: He had sigmoidectomy with primary anastomosis 07/2013 for colon cancer. He developed a ventral abdominal hernia postoperatively and is now using an elastic abdominal binder. He is presumed cancer free. Abdominal CT 12/30/2017 showed no evidence of strangulation. He has a liver lesion approximately 3.8 cm maximum diameter seen on CT scan that has been stable and is felt to be benign. He had repeat colonoscopy 05/25/2017 at [facility] which did not show significant pathology. He denies other disorders of his liver gallbladder or exocrine pancreas. : No history of hematuria dysuria or kidney stones. Neurologic: No history of large distribution strokes. He claims he had seizures from childhood but has not had recurrent seizures for several years while using Dilantin. Endocrine: He has hypothyroidism and history of hyperlipidemia but no known diabetes Hematology/oncology: He had colon cancer as per above. He has had no other malignancies or anemia. Psychiatric: He had no anxiety depression or other mental health issues Musk skeletal: He has no known gout arthritis or osteoporosis. - Constitutional Vitals: Temp Pulse Resp BP Pulse Ox 98.6 F 88 18 95/57 91 02/27/18 15:52 02/27/18 15:52 02/27/18 15:52 02/27/18 15:52 02/27/18 15:52 Exam: Gen.: He is well-developed well-nourished male who appears in no acute distress at present time. HEENT: Head is atraumatic and normocephalic. Eyes: EOMI. There is no scleral icterus. Mouth: Mucosa is moist. Neck: Supple and nontender. There is no thyromegaly or adenopathy noted. Heart: Regular without murmurs gallops or ectopics Lungs: No wheezes or crackles are heard. Abdomen: He is wearing an abdominal binder. There is a broad well-healed surgical scar showing evidence of dehiscence with healing. There is a large ventral abdominal hernia. No masses or guarding are noted. Extremities: There is no cyanosis edema or clubbing noted. Dorsalis pedis and posterior tibial pulses are trace palpable bilaterally. He has contraction deformity at the left middle finger DIP joint. 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 He has chronic venous stasis pigmentation changes. Neurologic: Mental status: He is talkative and a good historian. Cranial nerves : Smile is symmetric. Forehead wrinkles bilaterally. Tongue protrudes midline. EOMI. Motor: There is no pronator drift. Cerebellar: Finger to nose is intact bilaterally. Skin: Warm and dry Internal Med - H&P Results - Labs CBC & Chem 7: 02/27/18 08:04 02/27/18 08:04 Labs: Short CBC 02/27/18 Range/Units 08:04 WBC 5.5 (4.3-11.1) K/mcL Hgb 13.8 (12.9-16.9) g/dL Hct 41.0 (37.5-50.1) % Plt Count 191 (140-400) K/mcL Neutrophils # 3.9 (1.6-8.9) K/mcL BMP 02/27/18 08:04 Sodium 136 Potassium 4.2 Chloride 103 Carbon Dioxide 30 H BUN 13 Creatinine 0.78 Glucose 115 H Calcium 9.2 Liver Function 02/27/18 Range/Units 08:04 Total Bilirubin 0.3 (0.3-1.0) mg/dL AST 18 (13-39) Units/L ALT 27 (7-52) Units/L Alkaline Phosphatase 60 (34-104) Units/L Albumin 4.3 (3.5-5.7) g/dL
[2018-02-27] MEDS: Lactobacillus 1 EACH CAP.SPRINK PO SCH (20:16)
[2018-02-27] MEDS: Isosorbide MONOnitrate (24 HR) 30 MG TAB.ER.24H PO SCH (20:16)
[2018-02-27] MEDS ORDERED: Budesonide/Formoterol 160/4.5 1 PUFF INH IH SCH (22:00)
[2018-02-28] MEDS: MethylPREDNISolone 40 MG/ML VIAL IVP SCH ×2 (00:21→06:43)
[2018-02-28] MEDS: Isosorbide MONOnitrate (24 HR) 30 MG TAB.ER.24H PO SCH (07:58)
[2018-02-28] MEDS: Lactobacillus 1 EACH CAP.SPRINK PO SCH (07:58)
[2018-02-28] MEDS ORDERED: Bumetanide 1 MG TABLET PO SCH (09:00)
[2018-02-28] MEDS ORDERED: Metoprolol XL (24 HR) Succ 25 MG TAB.ER.24H PO SCH ×2 (09:00→09:19)
[2018-02-28] MEDS ORDERED: INCRUSE IH SCH ×2 (09:00→10:00)
[2018-02-28] MEDS ORDERED: Aspirin 81 MG TAB.CHEW PO SCH ×2 (09:00→09:19)
[2018-02-28] MEDS ORDERED: MethylPREDNISolone 40 MG/ML VIAL IVP SCH ×2 (09:19→12:00)
[2018-02-28] MEDS ORDERED: Lactobacillus 1 EACH CAP.SPRINK PO SCH ×2 (09:19→21:00)
[2018-02-28] MEDS ORDERED: NON-FORMULARY MEDICATION 1 EACH EACH (Umeclidinium Bromide [Incruse Ellipta] 1 PUFF) IH SCH (09:19)
[2018-02-28] MEDS ORDERED: Naloxone 0.4 MG/ML INJ IVP PRN ×2 (09:19)
[2018-02-28] MEDS ORDERED: Budesonide/Formoterol 160/4.5 1 PUFF INH IH SCH ×2 (09:19→10:00)
[2018-02-28] MEDS ORDERED: Albuterol 2.5 MG/3 ML NEBULIZER IH PRN ×2 (09:19)
[2018-02-28] MEDS ORDERED: Tiotropium 18 MCG inhalation IH SCH ×2 (10:00)
[2018-02-28] MEDS: Ipratropium/Albuterol Neb 3 ML IH SCH ×2 (10:51→11:07)
--- NOTE | 2018-02-28 14:40 | Discharge Summary ---
Date of Encounter: 02/28/18 Time of Encounter: 14:25 - Discharge Diagnosis (1) Acute exacerbation of chronic obstructive airways disease Priority: Primary Status: Acute (2) Seizures Priority: Secondary Status: Chronic (3) Hypoxemia Priority: Secondary Status: Chronic (4) Hypothyroidism Priority: Secondary Status: Acute Qualifiers: Hypothyroidism type: unspecified Qualified Code(s): E03.9 - Hypothyroidism , unspecified (5) Diastolic heart failure Priority: Secondary Status: Chronic Qualifiers: Heart failure chronicity: chronic Qualified Code(s): I50.32 - Chronic diastolic (congestive) heart failure Hospital course: Mr. Vail is a 72 year old male who returned to emergency room a few hours after ER discharge stating he had recurrent/unimproved dyspnea. He was reevaluated and admitted to [facility] floor with diagnosis of COPD. Initial orders were written by the emergency room physician. I saw him on February 27 and performed a history and physical. He was given IV steroids. His regular home medicines were continued otherwise. He was given Levaquin through emergency room but this will not be continued at discharge. Bumex and Imdur were started as treatment for diastolic heart failure. Social service initiated necessary steps for possible alf placement as the patient has had multiple admissions in the past few months. On February 28 he stated he had decided not to proceed with alf placement efforts but wished to go home. He will follow with his PCP Dr. Hutton within 1 week. - Time Spent with Patient Total time spent providing and/or coordinating discharge services: - Discharge Medications Prescriptions: Bumetanide 0.5 mg PO DAILY #30 tablet Isosorbide MONOnitrate (24 HR) [Imdur] 30 mg PO DAILY #30 tab.er.24h Home Medications: Aspirin 81 mg PO DAILY 03/02/15 [History] Levothyroxine [Synthroid] 150 mcg PO DAILY 03/02/15 [History] Phenytoin ER [Dilantin ER] 100 mg PO TID 03/02/15 [History] Montelukast [Singulair] 10 mg PO DAILY #30 tablet 06/22/15 [Rx] Umeclidinium [place] [Incruse Ellipta] 1 puff IH DAILY 05/25/17 [History] Metoprolol XL (24 HR) Succ [Toprol Xl] 25 mg PO DAILY #30 tab.er.24h 07/31/17 [ Rx] Albuterol Sulfate [Ventolin Hfa] 2 puff IH Q6H PRN 08/20/17 [History] Budesonide/Formoterol 160/4.5 [Symbicort 160/4.5] 2 puff IH BIDR #1 inhaler [Rx] Lactobacillus [Culturelle] 1 each PO BID #4 cap.sprink 02/20/18 [Rx] levoFLOXacin [Levaquin] 500 mg PO DAILY #2 tablet 02/20/18 [Rx] predniSONE [PredniSONE] 10 mg PO BIDWM #4 tablet 02/20/18 [Rx] Bumetanide 0.5 mg PO DAILY #30 tablet 02/28/18 [Rx] Isosorbide MONOnitrate (24 HR) [Imdur] 30 mg PO DAILY #30 tab.er.24h 02/28/18 [ Rx] Allergies/Adverse Reactions: 3 Allergy/AdvReac Type Severity Reaction Status Date / Time No Known Allergies Allergy Verified 02/26/18 23:11 Date of admission: 02/27/18 08:01 Primary care physician: Dex Hutton DO Consults: 02/27/18 11:14 Consult to Occupational Therapy [CONS] Routine Comment: Evaluate, develop and implement POC Reason for Consult: Weakness Does patient have active BEDREST order?: No Is patient medically & hemodynamically stable?: Yes Patient assessed for mobility or mobilized this visit?: Yes Consult to Physical Therapy [CONS] Routine Comment: Evaluate, develop and implement POC Reason for Consult: Weakness Does patient have active BEDREST order?: No Is patient medically & hemodynamically stable?: Yes Patient assessed for mobility or mobilized this visit?: Yes 02/27/18 15:21 Consult to Manager Of Change [CONS] Routine Reason for SW Consult: frequent readmissions - Constitutional Vitals: Temp Pulse Resp BP Pulse Ox 98.3 F 77 17 123/82 95 02/28/18 11:00 02/28/18 11:00 02/28/18 11:00 02/28/18 11:00 02/28/18 11:00 - Patient Status Disposition: Home Health Service Condition: Fair - Discharge Instructions Follow Up With: Dex Hutton DO [Primary Care Provider] - 1 week - Diet and Activity Activity: resume usual activities as tolerated, wear oxygen at all times Diet: advance to your usual diet
[2018-02-28 14:41] VITALS: BP 102/64
--- NOTE | 2018-02-28 17:19 | Physician Discharge Referral ---
Home Health/Hosp Referral Info Transfer to: Home Health Attending Provider: Jackson Provider in Charge Post Discharge: PCP (Anni) - Diagnosis (1) Acute exacerbation of chronic obstructive airways disease Priority: Primary Status: Acute (2) Diastolic heart failure Priority: Secondary Status: Chronic (3) Seizures Priority: Secondary Status: Chronic (4) Hypoxemia Priority: Secondary Status: Chronic (5) Hypothyroidism Priority: Secondary Status: Acute - Respiratory Orders Smoking Cessation: Smoking cessation has been advised. For more information, call the [place] Tobacco Quit Line at 1-238-JZFM-NOW. - Diet/Nutrition Diet/Nutrition Orders: Regular - Activity Activity Orders: Ambulate - Services Needed Following services are medically necessary services: Nursing, Home Health Aide, Physical Therapy, Occupational Therapy - Transfer Medications Prescriptions: Bumetanide 0.5 mg PO DAILY #30 tablet Isosorbide MONOnitrate (24 HR) [Imdur] 30 mg PO DAILY #30 tab.er.24h Home Medications: Aspirin 81 mg PO DAILY 03/02/15 [History] Levothyroxine [Synthroid] 150 mcg PO DAILY 03/02/15 [History] Phenytoin ER [Dilantin ER] 100 mg PO TID 03/02/15 [History] Montelukast [Singulair] 10 mg PO DAILY #30 tablet 06/22/15 [Rx] Umeclidinium [place] [Incruse Ellipta] 1 puff IH DAILY 05/25/17 [History] Metoprolol XL (24 HR) Succ [Toprol Xl] 25 mg PO DAILY #30 tab.er.24h 07/31/17 [ Rx] Albuterol Sulfate [Ventolin Hfa] 2 puff IH Q6H PRN 08/20/17 [History] Budesonide/Formoterol 160/4.5 [Symbicort 160/4.5] 2 puff IH BIDR #1 inhaler [Rx] Lactobacillus [Culturelle] 1 each PO BID #4 cap.sprink 02/20/18 [Rx] levoFLOXacin [Levaquin] 500 mg PO DAILY #2 tablet 02/20/18 [Rx] predniSONE [PredniSONE] 10 mg PO BIDWM #4 tablet 02/20/18 [Rx] Bumetanide 0.5 mg PO DAILY #30 tablet 02/28/18 [Rx] Isosorbide MONOnitrate (24 HR) [Imdur] 30 mg PO DAILY #30 tab.er.24h 02/28/18 [ Rx] Allergies/Adverse Reactions: 3 Allergy/AdvReac Type Severity Reaction Status Date / Time No Known Allergies Allergy Verified 02/26/18 23:11 Certification: Further, I certify that my clinical findings support that this patient is homebound (i.e. absences from home require considerable and taxing effort and are for medical reasons or worship services or infrequently or short duration when for other reasons) because: Homebound Reason: Leaving home requires considerable and taxing effort due to condition (Severe COPD with hypoxemia) Attestation: My signature below is to certify that this patient is under my care and that I, or nurse practitioner, or a physician's food and beverage assistant working with me, has a face-to -face encounter with this patient.
[2018-03-01] MEDS ORDERED: Isosorbide MONOnitrate (24 HR) 30 MG TAB.ER.24H PO SCH (09:00)
[2018-03-01] MEDS ORDERED: Aspirin 81 MG TAB.CHEW PO SCH (09:00)
[2018-03-01] MEDS ORDERED: Metoprolol XL (24 HR) Succ 25 MG TAB.ER.24H PO SCH (09:00)
[2018-03-01] MEDS ORDERED: Bumetanide 1 MG TABLET PO SCH (09:00)
== END 2018-02-28 16:14 | disposition home health service (06) ==
LOC: INPPIK 07:32 → EMEROOPIK 07:32 → INPPIK 08:50
PROVIDERS: ADMIT Internal Medicine; ATTEND Internal Medicine

== ENCOUNTER 2018-07-09 01:17 | Inpatient (IN) ==
[2018-07-09] MEDS ORDERED: Levofloxacin 500 MG/100 ML 500 MG/100 ML BAG IVPB ONE (01:20)
[2018-07-09] MEDS ORDERED: Ipratropium/Albuterol Neb 3 ML IH ONE (01:20)
[2018-07-09] MEDS ORDERED: methylPREDNISolone 125 MG/2 ML VIAL IVP ONE (01:20)
--- NOTE | 2018-07-09 01:23 | Emergency Department Note ---
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 Denies: chest pain, pain with inspiration, fever, sputum production, orthopnea, lower extremity pain, polyuria, polydipsia, parasthesias, palpitations, hemoptysis, diaphoresis, nausea/vomiting, syncope, abdominal pain, rash, sense of impending doom Treatment prior to arrival: oxygen, bronchodilator Cough present: Yes Cough Description: Involuntary, Non-Productive, Weak Cough Frequency: Intermittent Sputum production: Yes Sputum Amount: Small Sputum Color: White - Related Data Home Medications Medication Instructions Recorded Confirmed Aspirin 81 mg PO DAILY 03/02/15 02/27/18 Levothyroxine [Synthroid] 150 mcg PO DAILY 03/02/15 02/27/18 Phenytoin ER [Dilantin ER] 100 mg PO TID 03/02/15 02/27/18 Umeclidinium [place] [Incruse 1 puff IH DAILY 05/25/17 02/27/18 Ellipta] Albuterol Sulfate [Ventolin Hfa] 2 puff IH Q6H PRN 08/20/17 02/27/18 Previous Rx's Medication Instructions Recorded Montelukast [Singulair] 10 mg PO DAILY #30 tablet 06/22/15 Metoprolol XL (24 HR) Succ [Toprol 25 mg PO DAILY #30 tab.er.24h 07/31/17 Xl] Budesonide/Formoterol 160/4.5 2 puff IH BIDR #1 inhaler 11/08/17 [Symbicort 160/4.5] Lactobacillus [Culturelle] 1 each PO BID #4 cap.sprink 02/20/18 levoFLOXacin [Levaquin] 500 mg PO DAILY #2 tablet 02/20/18 predniSONE [PredniSONE] 10 mg PO BIDWM #4 tablet 02/20/18 Bumetanide 0.5 mg PO DAILY #30 tablet 02/28/18 Isosorbide MONOnitrate (24 HR) 30 mg PO DAILY #30 tab.er.24h 02/28/18 [Imdur] Allergies Allergy/AdvReac Type Severity Reaction Status Date / Time No Known Allergies Allergy Verified 02/26/18 23:11 All systems ED: reviewed and negative except as stated. Review of Systems: As Per HPI Constitutional: Reports: weakness. Denies: fever, chills Eyes: Denies: eye pain, eye discharge ENT ED: Reports: congestion. Denies: ear pain, throat pain Cardiovascular: Reports: dyspnea on exertion. Denies: chest pain, palpitations, syncope Respiratory: Reports: cough, dyspnea, wheezes, sputum production Gastrointestinal: Denies: abdominal pain, nausea, vomiting Genitourinary: Denies: urgency, dysuria, frequency Musculoskeletal: Denies: back pain, neck pain Integumentary: Denies: nipple discharge Neurological: Denies: headache Psychiatric: Denies: anxiety Endocrine: Denies: fatigue Hematological/Lymphatic: Denies: easy bleeding Allergic/Immunologic: Denies: facial swelling Past Medical History - Past Medical History Attestation: Yes The following information was validated with the patient. Source: patient, old records reviewed, nursing notes reviewed Medical history: Reports: asthma, cancer, COPD, hyperlipidemia, hypertension, seizures, thyroid disease, syncope, other Surgical history: Reports: colectomy Psychiatric history: Reports: no psych history - Social History Smoking Status: Former smoker Smokeless Tobacco Status: No Alcohol use: Reports: none Drug use: Reports: none Physical Exam - General Limitations: no limitations General appearance: alert, anxious, in distress - Head Head exam: atraumatic, normocephalic, normal inspection - Eye Eye exam: Present: normal appearance, PERRL, EOMI - ENT ENT exam: normal exam, normal oropharynx, mucous membranes moist, TM's normal bilaterally, normal external ear exam - Neck Neck exam: Present: normal inspection, full ROM, trachea midline - Chest Chest inspection: Present: normal inspection, symmetric chest wall rise - Respiratory Respiratory exam: Present: wheezes, accessory muscle use, prolonged expiratory phase - Cardiovascular Cardiovascular exam: Present: tachycardia, normal heart sounds - Abdominal Exam Abdominal exam: Present: soft, Non-Tender, normal bowel sounds. Absent: mass, pulsatile mass - Expanded Upper Extremity Exam Shoulder exam: Present: normal inspection, full ROM Arm exam: Present: normal inspection, full ROM Elbow exam: Present: normal inspection, full ROM Forearm/Wrist exam: Present: normal inspection, full ROM Hand exam: Present: normal inspection, full ROM Vascular exam: Normal: capillary refill, radial pulse - Expanded Lower Extremity Exam Hip/Pelvis exam: Present: normal inspection, full ROM Upper leg exam: Present: normal inspection, full ROM Knee exam: Present: normal inspection, full ROM Lower leg exam: Present: normal inspection, full ROM Ankle exam: Present: normal inspection, full ROM Foot/toe exam: Present: normal inspection, full ROM Neurovascular/Tendon exam: Present: normal capillary refill, normal fine/light touch. Absent: motor deficit, sensory deficit, tendon deficit Gait: observed and normal - Back Exam Back exam: Present: normal inspection, full ROM. Absent: muscle spasm - Neurological Exam Neurological exam: Present: alert, oriented X3, CN II-XII intact, normal gait - Psychiatric Psychiatric exam: Present: normal affect, normal mood - Skin Skin exam: Present: warm, dry, intact, normal color Course Course Narrative: History of patient seen and examined this did seem to calm down but still was having periods of hypoxia despite being on oxygen as recommendation admitted him for observation Vital Signs Temperature 98.1 F 07/09/18 01:18 Pulse Rate 101 07/09/18 01:18 Respiratory Rate 21 07/09/18 01:18 Blood Pressure 93/67 07/09/18 01:18 O2 Sat by Pulse Oximetry 84 07/09/18 01:18 Temperature 98.1 F 07/09/18 01:18 Pulse Rate 95 07/09/18 03:43 Respiratory Rate 20 07/09/18 03:43 Blood Pressure 97/68 07/09/18 03:43 O2 Sat by Pulse Oximetry 94 07/09/18 03:46 Oxygen Delivery Oxygen Delivery Nasal Cannula Shortness of Breath/Dyspnea - Differential Diagnosis Likely: acute exacerbation of chronic obstructive airways disease, pneumonia, asthma with exacerbation - Medical Records Medical records reviewed: Yes I reviewed the patient's medical records. - Lab Data Lab results reviewed: Yes I reviewed the patient's lab results. Result diagrams: 07/09/18 01:58 07/09/18 01:58 Lab Results 07/09/18 07/09/18 07/09/18 Range/Units 01:58 01:58 01:58 WBC 6.0 (4.3-11.1) K/mcL RBC 3.60 L (4.19-5.50) M/mcL Hgb 11.7 L (12.9-16.9) g/dL Hct 34.6 L (37.5-50.1) % MCV 96.1 (83.0-100.0) fL MCH 32.5 (28.0-33.3) pg MCHC 33.8 (31.6-35.5) g/dL RDW 13.2 (11.5-14.5) % Plt Count 187 (140-400) K/mcL MPV 11.0 (9.4-12.4) fL Immature Gran % 0.2 (0-4) % Seg Neutrophils % 59.5 % Lymphocytes % 20.2 % Monocytes % 10.9 % Eosinophils % 8.5 % Basophils % 0.7 % Neutrophils # 3.6 (1.6-8.9) K/mcL Lymphocytes # 1.2 (0.6-4.6) K/mcL Monocytes # 0.7 (0.0-1.3) K/mcL Eosinophils # 0.5 (0.0-0.6) K/mcL Basophils # 0.0 (0.0-0.2) K/mcL PT 11.4 (9.4-12.1) Seconds INR 1.0 APTT 25.5 L (26.0-36.0) Seconds Sodium 139 (136-145) mEq/L Potassium 4.0 (3.5-5.1) mEq/L Chloride 105 (98-107) mEq/L Carbon Dioxide 25 (23-29) mEq/L BUN 28 H (8-23) mg/dL Creatinine 1.21 (0.70-1.30) mg/dL Est GFR ( Amer) > 60 (> 60) Est GFR (Non-Af Amer) 59 L (> 60) BUN/Creatinine Ratio 23 (6-26) Glucose 104 (70-105) mg/dL Calculated Osmolality 294 (280-300) Calcium 8.6 (8.6-10.3) mg/dL Total Bilirubin 0.4 (0.3-1.0) mg/dL AST 16 (13-39) Units/L ALT 16 (7-52) Units/L Alkaline Phosphatase 60 (34-104) Units/L Troponin I < 0.03 (< 0.04) ng/mL B-Natriuretic Peptide (Less than 100) pg/mL Serum Total Protein 6.2 L (6.4-8.9) g/dL Albumin 3.9 (3.5-5.7) g/dL Globulin 2.3 L (2.4-3.5) g/dL Albumin/Globulin Ratio 1.7 (1.1-2.2) 07/09/18 Range/Units 01:58 WBC (4.3-11.1) K/mcL RBC (4.19-5.50) M/mcL Hgb (12.9-16.9) g/dL Hct (37.5-50.1) % MCV (83.0-100.0) fL MCH (28.0-33.3) pg MCHC (31.6-35.5) g/dL RDW (11.5-14.5) % Plt Count (140-400) K/mcL MPV (9.4-12.4) fL Immature Gran % (0-4) % Seg Neutrophils % % Lymphocytes % % Monocytes % % Eosinophils % % Basophils % % Neutrophils # (1.6-8.9) K/mcL Lymphocytes # (0.6-4.6) K/mcL Monocytes # (0.0-1.3) K/mcL Eosinophils # (0.0-0.6) K/mcL Basophils # (0.0-0.2) K/mcL PT (9.4-12.1) Seconds INR APTT (26.0-36.0) Seconds Sodium (136-145) mEq/L Potassium (3.5-5.1) mEq/L Chloride (98-107) mEq/L Carbon Dioxide (23-29) mEq/L BUN (8-23) mg/dL Creatinine (0.70-1.30) mg/dL Est GFR ( Amer) (> 60) Est GFR (Non-Af Amer) (> 60) BUN/Creatinine Ratio (6-26) Glucose (70-105) mg/dL Calculated Osmolality (280-300) Calcium (8.6-10.3) mg/dL Total Bilirubin (0.3-1.0) mg/dL AST (13-39) Units/L ALT (7-52) Units/L Alkaline Phosphatase (34-104) Units/L Troponin I (< 0.04) ng/mL B-Natriuretic Peptide 51 (Less than 100) pg/mL Serum Total Protein (6.4-8.9) g/dL Albumin (3.5-5.7) g/dL Globulin (2.4-3.5) g/dL Albumin/Globulin Ratio (1.1-2.2) - Radiology Data Radiology results reviewed: Yes I reviewed the patient's radiology results. ITS Impressions Chest X-Ray 07/09/18 01:19 IMPRESSION: In this patient with advanced COPD and chronic interstitial change, blunting of the left costophrenic sulcus is new, suspected to represent a small pleural effusion. D/ / Alin Stone MD / Alin Stone MD Interpreting Provider: Alin Stone MD - EKG Data EKG attestation: Yes I reviewed and interpreted this EKG. EKG results narrative: Sinus rhythm prolonged ID rate 90 ID 2:30 QRS 97 QT 359 axis -51 Critical Care Time Critical Care Time: Yes Total Critical Care Time: 35 Attestation: I probability clinically significant life-threatening deterioration patient's condition exclusive reportable procedures as result of increasing dyspnea and decreasing activity and desaturations here within the ER despite repeat aerosol treatments
[2018-07-09 02:29] LABS: Basophils % 0.7 %; Eosinophils # 0.5 K/mcL (0.0-0.6); Eosinophils % 8.5 %; Hematocrit 34.6 % (37.5-50.1); Hemoglobin 11.7 g/dL (12.9-16.9); Immature Granulocytes % 0.2 % (0-4); Lymphocytes # 1.2 K/mcL (0.6-4.6); Lymphocytes % 20.2 %; Mean Corpuscular HGB Conc 33.8 g/dL (31.6-35.5); Mean Corpuscular Hemoglobin 32.5 pg (28.0-33.3); Mean Corpuscular Volume 96.1 fL (83.0-100.0); Monocytes # 0.7 K/mcL (0.0-1.3); Monocytes % 10.9 %; Neutrophils # 3.6 K/mcL (1.6-8.9); Platelet Count 187 K/mcL (140-400); Red Cell Distribution Width 13.2 % (11.5-14.5); Segmented Neutrophils % 59.5 %
[2018-07-09 02:37] LABS: Prothrombin Time 11.4 Seconds (9.4-12.1)
[2018-07-09 02:40] LABS: Activated Partial Thrombo Time 25.5 Seconds (26.0-36.0)
[2018-07-09 03:02] LABS: Alanine Aminotransferase 16 Units/L (7-52); Albumin 3.9 g/dL (3.5-5.7); Albumin/Globulin Ratio 1.7 (1.1-2.2); Alkaline Phosphatase 60 Units/L (34-104); Aspartate Amino Transferase 16 Units/L (13-39); BUN/Creatinine Ratio 23 (6-26); Bilirubin,Total 0.4 mg/dL (0.3-1.0); Blood Urea Nitrogen 28 mg/dL (8-23); Calcium 8.6 mg/dL (8.6-10.3); Carbon Dioxide 25 mEq/L (23-29); Chloride 105 mEq/L (98-107); Globulin 2.3 g/dL (2.4-3.5); Glucose 104 mg/dL (70-105); Osmolality,Calculated 294 (280-300); Sodium 139 mEq/L (136-145); Total Protein 6.2 g/dL (6.4-8.9); eGFR For Non-African Americans 59 (> 60)
[2018-07-09 03:03] LABS: Troponin I < 0.03 ng/mL (< 0.04)
[2018-07-09] MEDS ORDERED: Naloxone 0.4 MG/ML INJ IVP PRN (05:39)
[2018-07-09] MEDS ORDERED: Ipratropium/Albuterol Neb 3 ML ONE (05:52)
[2018-07-09] MEDS: Ipratropium/Albuterol Neb 3 ML IH SCH ×3 (05:59→17:02)
[2018-07-09] MEDS: Budesonide/Formoterol 160/4.5 1 PUFF INH IH SCH ×2 (10:03→21:50)
[2018-07-09] MEDS: Aspirin 81 MG TAB.CHEW PO SCH (10:11)
[2018-07-09] MEDS: Metoprolol XL (24 HR) Succ 25 MG TAB.ER.24H PO SCH (10:11)
[2018-07-09] MEDS: Lactobacillus 1 EACH CAP.SPRINK PO SCH ×2 (10:11→20:35)
[2018-07-09] MEDS: Isosorbide MONOnitrate (24 HR) 30 MG TAB.ER.24H PO SCH (10:11)
[2018-07-09] MEDS: 0.9 % Sodium Chloride 1,000 ML IVC SCH ×3 (10:12→16:32)
[2018-07-09] MEDS: MethylPREDNISolone 40 MG/ML VIAL IVP SCH ×3 (10:12→16:32)
--- NOTE | 2018-07-09 17:31 | Electrocardiograph Report ---
[place] [id number] Test Date: 2018-07-09 Pat Name: Nirmal Vail Department: EDP-14 Room: [facility] Gender: M [employer] Operator: : 1945 Requested By: Adenike Chawla Order Number: [id number] Reading MD: Cassia Kelley Measurements Intervals [place] Rate: 90 P: -13 KS: 230 QRS: -51 QRSD: 97 T: 32 QT: 359 QTc: 440 Interpretive Statements Sinus rhythm Prolonged KS interval LAD, consider left anterior fascicular block Low voltage, precordial leads Abnormal R-wave progression, late transition Electronically Signed On 07-09-2018 17:30:26 EST by Cassia Kelley
--- NOTE | 2018-07-09 20:54 | Internal Med History&Physical ---
Date of Encounter: 07/09/18 Time of Encounter: 20:35 Assessment and Plan (1) Acute exacerbation of chronic obstructive airways disease Current visit: Yes Status: Acute He has been restarted on home medications. He states his breathing is improved. Levaquin has been started also. Lactobacillus will be added. (2) Anemia Current visit: Yes Status: Acute Order anemia testing in a.m. Qualifiers: Anemia type: unspecified type Qualified Code(s): D64.9 - Anemia, unspecified (3) Seizures Current visit: No Status: Chronic Continue Dilantin. (4) Hypoxemia Current visit: No Status: Chronic Restart inhalers. Continue oxygen 24/. (5) Diastolic heart failure Current visit: No Status: Chronic BN peptide normal at 51. Continue Imdur and Toprol. Qualifiers: Heart failure chronicity: chronic Qualified Code(s): I50.32 - Chronic diastolic (congestive) heart failure Internal Medicine - H&P: HPI Chief complaint: Dyspnea Admitted From: Emergency Dept Plans for Post Hospital Care: Home History of present illness: Mr. Vail is a 73 year old male who came to emergency room stating he had onset of dyspnea approximately 10 PM the evening of July 08. He states he had run out of several of his inhalers 2-3 days earlier. When he did not improve after several hours he came to emergency room. He was evaluated and was felt to have exacerbation of COPD. He was admitted to [facility] floor for ongoing care needs. He smoked from age [age] up 2 packs per day. He has a diagnosis of COPD and wears oxygen at home 16/01. Most recent chest CT was 11/07/2017 which showed 9 mm nodule in the lateral basal left lower lobe not significant change from July 2017 CT. There was a 4 mm right lower lobe nodule decreased from previous 6 mm size. Past Med Surg Social Fam HX - Past Medical History Medical history: asthma, cancer, COPD, hyperlipidemia, hypertension, seizures, thyroid disease, syncope, other Additional medical history: [place], (HAS NO HEARING AIDS), HAS NO TEETH( NO DENTURES) GETS MEALS ON WHEELS( EATS SOFT FOODS), NO REPORT OF SHINGLES VACCINATION, WEARS HOME 02 AT 3LPM VIA [place], (LIVES AT HOME ALONE), LARGE ABD HERNIA Psychiatric history: no psych history - Past Surgical History Surgical History: colectomy Additional surgical history: Right ankle surgery when "in high school." - Social History Smoking Status: Former smoker Smokeless Tobacco Status: No Alcohol use: none Drug use: none - Family History Mother History Unknown: Yes Adopted: No Family Member Ethnicity: Non- Living Status: Hx Family Cardiac Disorders: No Hx Family Respiratory Disorders: Yes (TB, treated) Hx Family Cancer: No Hx Family GI Disorders: No Hx Family Endocrine Disorder: No Hx Family Neuromuscular Disorders: No Hx Family Neurologic Disorders: No Hx Family HEENT Disorders: No Hx Family Autoimmune Disorders: No Father History Unknown: Yes Adopted: No Family Member Ethnicity: Non- Living Status: Hx Family Cardiac Disorders: No Hx Family Respiratory Disorders: No Hx Family Cancer: No Hx Family GI Disorders: No Hx Family Endocrine Disorder: No Hx Family Neuromuscular Disorders: No Hx Family Neurologic Disorders: No Hx Family HEENT Disorders: No Hx Family Autoimmune Disorders: No Internal Medicine - H&P: Meds Aspirin 81 mg PO DAILY 03/02/15 [History] Levothyroxine [Synthroid] 150 mcg PO DAILY 03/02/15 [History] Phenytoin ER [Dilantin ER] 100 mg PO TID 03/02/15 [History] Montelukast [Singulair] 10 mg PO DAILY #30 tablet 06/22/15 [Rx] Umeclidinium [place] [Incruse Ellipta] 1 puff IH DAILY 05/25/17 [History] Metoprolol XL (24 HR) Succ [Toprol Xl] 25 mg PO DAILY #30 tab.er.24h 07/31/17 [Rx] Albuterol Sulfate [Ventolin Hfa] 2 puff IH Q6H PRN 08/20/17 [History] Budesonide/Formoterol 160/4.5 [Symbicort 160/4.5] 2 puff IH BIDR #1 inhaler 11/08/17 [Rx] Lactobacillus [Culturelle] 1 each PO BID #4 cap.sprink 02/20/18 [Rx] levoFLOXacin [Levaquin] 500 mg PO DAILY #2 tablet 02/20/18 [Rx] predniSONE [PredniSONE] 10 mg PO BIDWM #4 tablet 02/20/18 [Rx] Bumetanide 0.5 mg PO DAILY #30 tablet 02/28/18 [Rx] Isosorbide MONOnitrate (24 HR) [Imdur] 30 mg PO DAILY #30 tab.er.24h 02/28/18 [Rx] Allergy/AdvReac Type Severity Reaction Status Date / Time No Known Allergies Allergy Verified 02/26/18 23:11 All Systems PM: A 10-system review of systems was performed and is negative for pertinent findings except as documented above in the HPI. Review of systems: Review of systems from his February 2018 [facility] hospitalization were reviewed and revised as below. Gen.: His weight is minimally changed from 91.99 kg on 07/12/2015 to 92.646 kg at present Cardiovascular: He has no known hypertension heart failure angina DVT pulmonary embolus or NH. He had a heart catheter January 2014 which showed 30% lesion in the mid LAD and normal LVEF at 65%. Echocardiogram 01/17/2018 showed LVEF of 50% with mild LV diastolic dysfunction with E/A ratio of 0.5. There was mild tricuspid regurgitation. Respiratory: As per history of present illness GI: He had sigmoidectomy with primary anastomosis 07/2013 for colon cancer. He developed a ventral abdominal hernia postoperatively and is now using an elastic abdominal binder. He is presumed cancer free. Abdominal CT 12/30/2017 showed no evidence of strangulation. He has a liver lesion approximately 3.8 cm maximum diameter seen on CT scan that has been stable and is felt to be benign. He had repeat colonoscopy 05/25/2017 at [facility] which did not show significant pathology. He denies other disorders of his liver gallbladder or exocrine pancreas. : No history of hematuria dysuria or kidney stones. Neurologic: No history of large distribution strokes. He claims he had seizures from childhood but has not had recurrent seizures for several years while using Dilantin. Endocrine: He has hypothyroidism and history of hyperlipidemia but no known diabetes Hematology/oncology: He had colon cancer as per above. He has had no other malignancies or anemia. Psychiatric: He had no anxiety depression or other mental health issues Musk skeletal: He has no known gout arthritis or osteoporo - Constitutional Vitals: Temp Pulse Resp BP Pulse Ox 98.6 F 78 20 129/54 96 07/09/18 18:45 07/09/18 18:45 07/09/18 18:45 07/09/18 18:45 07/09/18 18:45 Exam: Gen.: He is a well-developed well-nourished male resting comfortably in bed who appears in no acute distress at present time. HEENT: Head is atraumatic and normocephalic. Eyes: EOMI. There is no scleral icterus. Mouth: Mucosa is moist. Neck: Supple and nontender. There is no thyromegaly or adenopathy noted. Heart: Regular without murmurs gallops or ectopics Lungs: No wheezes or crackles are heard. He has diminished breath sounds diffusely. Abdomen: He is wearing an abdominal binder which I did not remove. The abdomen is nontender to palpation. Extremities: There is no cyanosis edema or clubbing noted. Dorsalis pedis and posttibial pulses are trace palpable bilaterally. He has had partial amputation of the left great toe. Neurologic: Mental status: He is talkative and a good historian. Cranial ner ves: Smile is symmetric. Forehead wrinkles bilaterally. Tongue protrudes midline. EOMI. Motor: There is no pronator drift. Cerebellar: Finger to nose is intact bilaterally. Skin: Warm and dry Internal Med - H&P Results - Labs CBC & Chem 7: 07/09/18 01:58 07/09/18 01:58 Labs: Short CBC 07/09/18 Range/Units 01:58 WBC 6.0 (4.3-11.1) K/mcL Hgb 11.7 L (12.9-16.9) g/dL Hct 34.6 L (37.5-50.1) % Plt Count 187 (140-400) K/mcL Neutrophils # 3.6 (1.6-8.9) K/mcL BMP 07/09/18 01:58 Sodium 139 Potassium 4.0 Chloride 105 Carbon Dioxide 25 BUN 28 H Creatinine 1.21 Glucose 104 Calcium 8.6 Cardiac Enzymes 07/09/18 Range/Units 01:58 Troponin I < 0.03 (< 0.04) ng/mL Liver Function 07/09/18 Range/Units 01:58 Total Bilirubin 0.4 (0.3-1.0) mg/dL AST 16 (13-39) Units/L ALT 16 (7-52) Units/L Alkaline Phosphatase 60 (34-104) Units/L Albumin 3.9 (3.5-5.7) g/dL - Impressions ITS Impressions Chest X-Ray 07/09/18 01:19 IMPRESSION: In this patient with advanced COPD and chronic interstitial change, blunting of the left costophrenic sulcus is new, suspected to represent a small pleural effusion. D/ / Alin Stone MD / Alin Stone MD Interpreting Provider: Alin Stone MD
[2018-07-09] MEDS ORDERED: Albuterol 2.5 MG/3 ML NEBULIZER IH PRN (20:58)
[2018-07-10 07:48] LABS: Basophils % 0.5 %; Eosinophils # 0.1 K/mcL (0.0-0.6); Eosinophils % 1.1 %; Hematocrit 34.7 % (37.5-50.1); Hemoglobin 11.5 g/dL (12.9-16.9); Immature Granulocytes % 0.2 % (0-4); Lymphocytes # 1.3 K/mcL (0.6-4.6); Lymphocytes % 20.5 %; Mean Corpuscular HGB Conc 33.1 g/dL (31.6-35.5); Mean Corpuscular Hemoglobin 32.2 pg (28.0-33.3); Mean Corpuscular Volume 97.2 fL (83.0-100.0); Mean Platelet Volume 11.2 fL (9.4-12.4); Monocytes # 0.7 K/mcL (0.0-1.3); Monocytes % 10.5 %; Neutrophils # 4.2 K/mcL (1.6-8.9); Platelet Count 167 K/mcL (140-400); Red Blood Count 3.57 M/mcL (4.19-5.50); Red Cell Distribution Width 13.3 % (11.5-14.5); Segmented Neutrophils % 67.2 %
[2018-07-10 08:12] LABS: BUN/Creatinine Ratio 21 (6-26); Blood Urea Nitrogen 19 mg/dL (8-23); Calcium 8.5 mg/dL (8.6-10.3); Carbon Dioxide 29 mEq/L (23-29); Chloride 108 mEq/L (98-107); Glucose 90 mg/dL (70-105); Osmolality,Calculated 296 (280-300); Potassium 4.4 mEq/L (3.5-5.1); Sodium 142 mEq/L (136-145); eGFR For Non-African Americans > 60 (> 60)
[2018-07-10] MEDS ORDERED: Levofloxacin 500 MG/100 ML 500 MG/100 ML BAG IVPB SCH (09:00)
[2018-07-10] MEDS: Budesonide/Formoterol 160/4.5 1 PUFF INH IH SCH (09:04)
[2018-07-10] MEDS: Isosorbide MONOnitrate (24 HR) 30 MG TAB.ER.24H PO SCH (09:22)
[2018-07-10] MEDS: Aspirin 81 MG TAB.CHEW PO SCH (09:22)
[2018-07-10] MEDS: Lactobacillus 1 EACH CAP.SPRINK PO SCH (09:22)
[2018-07-10] MEDS: Metoprolol XL (24 HR) Succ 25 MG TAB.ER.24H PO SCH (09:23)
[2018-07-10 10:47] VITALS: BP 91/50
--- NOTE | 2018-07-10 11:52 | Discharge Summary ---
Orders not resulted at time of discharge: Pending orders 07/10/18 07:09 Ferritin AM 0400 Folate AM 0400 Iron Profile AM 0400 Phenytoin (Dilantin) AM 0400 Vitamin B12 AM 0400 Date of Encounter: 07/10/18 Time of Encounter: 11:45 - Discharge Diagnosis (1) Acute exacerbation of chronic obstructive airways disease Priority: Primary Status: Acute (2) Anemia Priority: Secondary Status: Acute Qualifiers: Anemia type: unspecified type Qualified Code(s): D64.9 - Anemia, unspecified (3) Seizures Priority: Secondary Status: Chronic (4) Hypoxemia Priority: Secondary Status: Chronic (5) Diastolic heart failure Priority: Secondary Status: Chronic Qualifiers: Heart failure chronicity: chronic Qualified Code(s): I50.32 - Chronic diastolic (congestive) heart failure Hospital course: Mr. Vail is a 73 year old male who came to emergency room stating he had onset of dyspnea approximately 10 PM the evening of July 08. He states he had run out of several of his inhalers 2-3 days earlier. When he did not improve after several hours he came to emergency room. He was evaluated and was felt to have exacerbation of COPD. He was admitted to [facility] for ongoing care needs. Initial orders were written by the emergency room physician. I saw him on July 09 and performed a history and physical. He was restarted on home medications. Levaquin was given in emergency room. When I saw him on July 10 he stated he felt back to his baseline and stable for discharge home. I explained to him in detail it was unsafe and unwise for him to run out of his inhalers. I told him to discuss with his PCP a plan to avoid interruption of therapy. Anemia testing was ordered with results pending at time of discharge. Hemoglobin had decreased slightly to 11.5 on day of discharge. Creatinine normalized to 0.90 with estimated GFR greater than 60 by day of discharge. He will be discharged home and follow with his PCP Dr. Hutton within 1 week. - Time Spent with Patient Total time spent providing and/or coordinating discharge services: - Discharge Medications Prescriptions: Budesonide/Formoterol 160/4.5 [Symbicort 160/4.5] 2 puff IH BIDR #1 inhaler Umeclidinium [place] [Incruse Ellipta] 1 puff IH DAILY 30 Days #30 [email or web address] Home Medications: Aspirin 81 mg PO DAILY 03/02/15 [History] Levothyroxine [Synthroid] 150 mcg PO DAILY 03/02/15 [History] Phenytoin ER [Dilantin ER] 100 mg PO TID 03/02/15 [History] Montelukast [Singulair] 10 mg PO DAILY #30 tablet 06/22/15 [Rx] Metoprolol XL (24 HR) Succ [Toprol Xl] 25 mg PO DAILY #30 tab.er.24h 07/31/17 [Rx] Albuterol Sulfate [Ventolin Hfa] 2 puff IH Q6H PRN 08/20/17 [History] Lactobacillus [Culturelle] 1 each PO BID #4 cap.sprink 02/20/18 [Rx] Bumetanide 0.5 mg PO DAILY #30 tablet 02/28/18 [Rx] Isosorbide MONOnitrate (24 HR) [Imdur] 30 mg PO DAILY #30 tab.er.24h 02/28/18 [Rx] Budesonide/Formoterol 160/4.5 [Symbicort 160/4.5] 2 puff IH BIDR #1 inhaler 07/10/18 [Rx] Umeclidinium [place] [Incruse Ellipta] 1 puff IH DAILY 30 Days #30 blst.w.dev 07/10/18 [Rx] Allergies/Adverse Reactions: Allergy/AdvReac Type Severity Reaction Status Date / Time No Known Allergies Allergy Verified 02/26/18 23:11 Date of admission: 07/09/18 21:00 Primary care physician: Dex Hutton DO Consults: 07/09/18 05:39 Consult to Nurse Navigator [CONS] Routine Comment: 07/09/18 18:21 Consult to Customer Solutions Teammate [CONS] Routine Reason for SW Consult: Discharge planning, see nurses notes. - Constitutional Vitals: Temp Pulse Resp BP Pulse Ox 96.1 F L 74 16 91/50 97 07/10/18 10:44 07/10/18 10:44 07/10/18 10:44 07/10/18 10:44 07/10/18 10:44 - Patient Status Disposition: Home, Self-Care Condition: Fair - Discharge Instructions Follow Up With: Dex Hutton DO [Primary Care Provider] - 1 week - Diet and Activity Activity: resume usual activities as tolerated, wear oxygen at all times Diet: advance to your usual diet
[2018-07-10 14:03] LABS: Folate 7.7 ng/mL (3.0-16.0)
--- NOTE | 2018-07-10 14:25 | Physician Discharge Referral ---
Home Health/Hosp Referral Info Transfer to: Home Health Attending Provider: Jackson Provider in Charge Post Discharge: PCP (Anni) - Diagnosis (1) Acute exacerbation of chronic obstructive airways disease Priority: Primary Status: Acute (2) Anemia Priority: Secondary Status: Acute (3) Seizures Priority: Secondary Status: Chronic (4) Hypoxemia Priority: Secondary Status: Chronic (5) Diastolic heart failure Priority: Secondary Status: Chronic - Respiratory Orders Oxygen / L per min (2 L/m by nasal cannula 16/01) Smoking Cessation: Smoking cessation has been advised. For more information, call the [place] Tobacco Quit Line at 4-679-VAXK-NOW. - Diet/Nutrition Diet/Nutrition Orders: Regular - Activity Activity Orders: Ambulate - Services Needed Following services are medically necessary services: Nursing, Home Health Aide, Physical Therapy, Occupational Therapy - Transfer Medications Prescriptions: Budesonide/Formoterol 160/4.5 [Symbicort 160/4.5] 2 puff IH BIDR #1 inhaler Umeclidinium [place] [Incruse Ellipta] 1 puff IH DAILY 30 Days #30 blst.w.dev Home Medications: Aspirin 81 mg PO DAILY 03/02/15 [History] Levothyroxine [Synthroid] 150 mcg PO DAILY 03/02/15 [History] Phenytoin ER [Dilantin ER] 100 mg PO TID 03/02/15 [History] Montelukast [Singulair] 10 mg PO DAILY #30 tablet 06/22/15 [Rx] Metoprolol XL (24 HR) Succ [Toprol Xl] 25 mg PO DAILY #30 tab.er.24h 07/31/17 [Rx] Albuterol Sulfate [Ventolin Hfa] 2 puff IH Q6H PRN 08/20/17 [History] Lactobacillus [Culturelle] 1 each PO BID #4 cap.sprink 02/20/18 [Rx] Bumetanide 0.5 mg PO DAILY #30 tablet 02/28/18 [Rx] Isosorbide MONOnitrate (24 HR) [Imdur] 30 mg PO DAILY #30 tab.er.24h 02/28/18 [Rx] Budesonide/Formoterol 160/4.5 [Symbicort 160/4.5] 2 puff IH BIDR #1 inhaler 07/10/18 [Rx] Umeclidinium [place] [Incruse Ellipta] 1 puff IH DAILY 30 Days #30 blst.w.dev 07/10/18 [Rx] Allergies/Adverse Reactions: Allergy/AdvReac Type Severity Reaction Status Date / Time No Known Allergies Allergy Verified 02/26/18 23:11 Certification: Further, I certify that my clinical findings support that this patient is homebound (i.e. absences from home require considerable and taxing effort and are for medical reasons or quaker services or infrequently or short duration when for other reasons) because: Homebound Reason: Leaving home requires considerable and taxing effort due to condition (Severe COPD) Attestation: My signature below is to certify that this patient is under my care and that I, or nurse practitioner, or a physician's senior office assistant working with me, has a [id number] encounter with this patient.
[2018-07-10 16:23] LABS: Phenytoin (Dilantin) 4.1 mcg/mL (10.0-20.0)
== END 2018-07-10 13:45 | disposition home or self-care (01) | DRG 191 ==
LOC: EMEROOPIK 01:17 → INPPIK 01:17
PROVIDERS: ADMIT Internal Medicine; ATTEND Internal Medicine